=== PATIENT | female | born 1965 | race Caucasian/White ===

== ENCOUNTER 2018-03-12 11:25 | Outpatient (CLI) | payer BC, SELFPAY ==
[2018-03-12 12:05] LABS: Absolute Basophil Count 0.02 k/cumm (0.0-0.2); Absolute Eosinophil Count 0.08 k/cumm (0.0-0.7); Absolute Lymphocyte Count 1.48 k/cumm (1.2-3.4); Absolute Monocyte Count 0.45 k/cumm (0.11-0.7); Absolute Neutrophil Count 3.15 k/cumm (1.2-6.7); Basophils % 0.4; Eosinophils % 1.5; HCT 37.4 % (36.0-46.0); HGB 12.3 g/dL (12.0-15.5); Lymphocytes % 28.6; Mean Corp. HGB Concentration 32.9 g/dL (32.0-36.0); Mean Corpuscular Hemoglobin 29.2 pg (27.0-33.0); Mean Corpuscular Volume 88.8 fL (80-95); Mean Platelet Volume 9.7 fL (8.0-11.0); Monocytes % 8.7; Neutrophils % 60.8; Platelet Count 200 x1000/uL (130-400); RBC 4.21 m/cumm (4.00-5.20); RBC Distribution Width 12.9 % (11.7-14.6); White Blood Cell Count 5.18 k/cumm (4.4-10.8)
[2018-03-12 12:08] LABS: Bilirubin Negative (Negative); Blood Negative (Negative); Clarity Sl Cloudy; Glucose Negative (Negative); Ketones Negative (Negative); Leukocyte Esterase Negative (Negative); Nitrite Negative (Negative); Specific Gravity 1.025 (1.005-1.025); Urobilinogen 0.2 EU/dL (Up TO 0.2); pH 5.5 (5-8)
[2018-03-12 13:17] LABS: ALT 34 U/L (12-78); AST 20 U/L (15-37); Albumin 3.7 g/dL (3.4-5.0); Alkaline Phosphatase 102 U/L (46-116); BUN 24 mg/dL (7-18); Bilirubin, Total 0.3 mg/dL (0.2-1.0); Calcium 8.9 mg/dL (8.5-10.1); Chloride 106 mmol/L (98-107); Cholesterol 193 mg/dL (50-200); Glucose 82 mg/dL (70-100); HDL Cholesterol 67 mg/dL (40-60); LDL CHOLESTEROL 116 mg/dL (<100); Potassium 3.9 mmol/L (3.5-5.1); Sodium 144 mmol/L (136-145); TSH (W/Ref FT4) 0.85 uIU/mL (0.358-3.74); Total Protein 6.5 g/dL (6.4-8.2); Triglyceride 57 mg/dL (30-150)
== END 2018-03-12 11:45 ==
PROVIDERS: PCP Family Medicine; Visit Provider Family Medicine
DX: G25.81 Restless legs syndrome (principal)
CPT/HCPCS: 36415; 80053; 80061; 83721; 81003; 83735; 84443; 85025

== ENCOUNTER 2018-03-14 01:04 | Outpatient (CLI) | payer BC, SELFPAY ==
--- NOTE | 2018-03-14 12:05 | DI.MAMMO_ITS ---
SYMPTOMS/DIAGNOSIS: SCREENING, Z12.31, GENERAL ADULT MEDICAL EXAM, Z00.00 MAMMOGRAM: Mammograms were interpreted according to the usual protocol including computer analysis with CAD system, tomosynthesis and C view imaging. The breast tissue is heterogeneously radiodense, which lowers the sensitivity of the study. There is no dominant mass. There are no suspicious calcifications and there has been no significant interval change when compared with prior images. SUMMARY: No evidence of malignancy, category 1. Yearly screening mammography is recommended. Breast density category C. MQSA ASSESSMENT OF FINDINGS: Negative. Category 1. Patient will receive a letter notifying them of these results. Bi-RADS category C. The breasts are heterogeneously dense, which may obscure small masses.
== END 2018-03-14 01:24 ==
PROVIDERS: PCP Family Medicine; Visit Provider Family Medicine
DX: Z00.00 Encounter for general adult medical examination without abnormal findings (principal); Z12.31 Encounter for screening mammogram for malignant neoplasm of breast
CPT/HCPCS: 77063; 77067

== ENCOUNTER 2018-11-19 14:50 | Outpatient (CLI) | payer BC, SELFPAY ==
--- NOTE | 2018-11-19 14:40 | DI.RAD_ITS ---
SYMPTOMS/DIAGNOSIS: LEFT 3RD TO 4TH METATARSAL PAIN//TENDERNESS, FOOT PAIN, M79.673, ? FX LEFT FOOT: Three views were obtained. No bony or soft tissue abnormality seen.
== END 2018-11-19 15:10 ==
PROVIDERS: PCP Family Medicine; Visit Provider Family Medicine
DX: M79.672 Pain in left foot (principal)
CPT/HCPCS: 73630

== ENCOUNTER 2019-06-20 16:41 | Outpatient (CLI) | payer BC, SELFPAY ==
--- NOTE | 2019-06-20 17:05 | DI.RAD_ITS ---
EXAM: XR LUMBAR SPINE COMPLETE CLINICAL HISTORY: pain M54.9 DORSALGIA TECHNIQUE: Five views were obtained. COMPARISON: LUMBAR SPINE COMPLETE from 01/31/2013 FINDINGS: There is a moderate left convex lumbar scoliosis. There are vascular clips in the right upper quad rant consistent with prior cholecystectomy. There are degenerative changes of the SI joints. There is disc space narrowing throughout the lumbar spine, most marked at L2-3 where there are prominent hy pertrophic endplate changes and endplate sclerosis of the adjoining vertebral bodies. Moderate facet hypertrophic degenerative changes noted as well. No evidence of spondylolysis or spondylolisthesis. IMPRESSION: Degenerative changes of the lumbar spine as described above.
--- NOTE | 2019-06-20 17:15 | DI.RAD_ITS ---
EXAM: XR CHEST 2V PA LATERAL CLINICAL HISTORY: abnormal lung sounds. TECHNIQUE: COMPARISON: CHEST 2 VIEWS PA,LAT from 12/11/2012 FINDINGS: Heart is not enlarged. Lungs are hyperinflated but generally clear with slight pulmonary interstitia l prominence. The findings are suggestive of COPD. No pleural effusion seen. IMPRESSION: Presumed pulmonary emphysematous changes. No focal consolidation.
[2019-06-20 17:27] LABS: Absolute Basophil Count 0.02 k/cumm (0.0-0.2); Absolute Eosinophil Count 0.07 k/cumm (0.0-0.7); Absolute Lymphocyte Count 1.86 k/cumm (1.2-3.4); Absolute Monocyte Count 0.41 k/cumm (0.11-0.7); Absolute Neutrophil Count 2.56 k/cumm (1.2-6.7); Basophils % 0.4; Eosinophils % 1.4; HGB 13.6 g/dL (12.0-15.5); Lymphocytes % 37.8; Mean Corpuscular Hemoglobin 29.4 pg (27.0-33.0); Mean Corpuscular Volume 86.4 fL (80-95); Mean Platelet Volume 9.8 fL (8.0-11.0); Monocytes % 8.3; Neutrophils % 52.1; Platelet Count 246 x1000/uL (130-400); RBC 4.63 m/cumm (4.00-5.20); RBC Distribution Width 12.8 % (11.7-14.6); White Blood Cell Count 4.92 k/cumm (4.4-10.8)
[2019-06-20 18:38] LABS: ESR 6 mm/hr (0-30)
[2019-06-20 18:46] LABS: ALT 35 U/L (14-59); AST 28 U/L (15-37); Albumin 4.1 g/dL (3.4-5.0); Alkaline Phosphatase 113 U/L (46-116); Anion Gap 8.4 mmol/L (3-11); BUN 16 mg/dL (7-18); Bilirubin, Total 0.3 mg/dL (0.2-1.0); CO2 32.6 mmol/L (21.0-32.0); CREATININE 0.54 mg/dL (0.55-1.02); Calcium 9.4 mg/dL (8.5-10.1); Chloride 101 mmol/L (98-107); Glucose 111 mg/dL (74-106); Potassium 3.7 mmol/L (3.5-5.1); Sodium 142 mmol/L (136-145); TSH 0.49 uIU/mL (0.36-3.74); Total Protein 7.3 g/dL (6.4-8.2)
== END 2019-06-20 17:01 ==
PROVIDERS: PCP Nurse Practitioner; Visit Provider Internal Medicine
DX: Z00.00 Encounter for general adult medical examination without abnormal findings (principal); M54.5 Low back pain; R50.9 Fever, unspecified; R09.89 Other specified symptoms and signs involving the circulatory and respiratory systems; J44.9 Chronic obstructive pulmonary disease, unspecified; M41.56 Other secondary scoliosis, lumbar region; M47.816 Spondylosis without myelopathy or radiculopathy, lumbar region; M53.3 Sacrococcygeal disorders, not elsewhere classified
CPT/HCPCS: 36415; 80053; 85652; 71046; 72110; 84443; 85025

== ENCOUNTER 2019-11-29 02:05 | Outpatient (CLI) | payer BC, SELFPAY ==
--- NOTE | 2019-11-29 13:04 | DI.MAMMO_ITS ---
EXAM: MG MAMMO SCREENING CLINICAL HISTORY: screening,Z12.39 TECHNIQUE: Bilateral full field digital CC and MLO mammographic images were obtained with 3D tomosyn thesis and utilizing computer aided detection (CAD). COMPARISON: Available for comparison. FINDINGS: Masses/Architectural Distortion: None seen. Microcalcifications: No suspicious pleomorphic-type are seen. Skin Thickening/Nipple Retraction: None. IMPRESSION: 1. No significant interval change with no specific features of malignancy noted. 2. Unless there is more urgent need, screening mammography is recommended, as per [employer] guidelines. BI-RADS Category 1 - Negative Breast Density - Category B - Scattered areas of fibroglandular density A negative radiographic report should not delay biopsy if a dominant or clinically suspicious mass is present. Up to ten percent of cancers are not identified on mammography. A negative report may reinforce clinical impression. Adenosis and dense breasts may obscure an underlying neoplasm. False positive reports average 6 to 10%. Patient will receive a letter notifying them of these results.
== END 2019-11-29 02:25 ==
PROVIDERS: PCP Nurse Practitioner; Visit Provider Nurse Practitioner
DX: Z12.31 Encounter for screening mammogram for malignant neoplasm of breast (principal)
CPT/HCPCS: 77063; 77067

== ENCOUNTER 2021-06-04 03:22 | Outpatient (CLI) | payer BC, SELFPAY ==
[2021-06-04 08:16] LABS: Hemoglobin A1C 5.4 % (<5.7)
[2021-06-04 08:59] LABS: Anion Gap 7.9 mmol/L (3-11); BUN 20 mg/dL (7-18); CO2 30.1 mmol/L (21.0-32.0); CREATININE 0.7 mg/dL (0.55-1.02); Calcium 9.5 mg/dL (8.5-10.1); Calculated LDL 158 mg/dL (<100); Chloride 103 mmol/L (98-107); Cholesterol 236 mg/dL (<200); Glucose 97 mg/dL (74-106); HDL Cholesterol 70 mg/dL (40-60); Potassium 3.9 mmol/L (3.5-5.1); Sodium 141 mmol/L (136-145); Triglyceride 41 mg/dL (<150)
== END 2021-06-04 03:23 | disposition home or self-care (01) ==
LOC: LBO 03:23
PROVIDERS: PCP Nurse Practitioner; Visit Provider Nurse Practitioner
DX: G47.62 Sleep related leg cramps (principal); Z13.1 Encounter for screening for diabetes mellitus; Z13.6 Encounter for screening for cardiovascular disorders
CPT/HCPCS: 36415; 80048; 80061; 83036

== ENCOUNTER 2021-06-08 00:49 | Outpatient (CLI) | payer BC, SELFPAY ==
--- NOTE | 2021-06-08 07:30 | DI.MRI_ITS ---
Exam(s) MR LUMBAR SPINE WO/W EXAM: MR LUMBAR SPINE WO/W CLINICAL HISTORY: SYNOVIAL CYST F/U.HAD BACK SURGERY 2015.radiculopathy. TECHNIQUE: Multiplanar multisequence MRI of the Lumbar Spine was performed. CONTRAST MATERIAL: IV Contrast: 12 mL of Dotarem contrast administered. COMPARISON: MR MRI - LUMBAR SPINE WO CONTRAST from 02/26/2015 MR MRI - LUMBAR SPINE WO CONTRAST from 02/26/2015 FINDINGS: Bones: The last intervertebral disc space is designated the L5/S1 level for the numbering purpose of this examination. The vertebral body heights are well maintained. There is an S-type thoracolumbar s coliosis. Degenerative endplate signal changes are present particularly at the L2-L3 level. Cord: The conus tip ends at the L1-L2. This is unchanged. Level. It is of normal size and signal i ntensity. T12-L1: No disc herniations or bulges are present. No central spinal canal or neural foraminal stenos is. L1-2: No disc herniations or bulges are present. No central spinal canal or neural foraminal stenosis . L2-3: Mild diffuse disc bulge. No significant central spinal canal stenosis. Degenerative changes o f the facets are seen. There appears to be a 7 mm right synovial cyst. It extends into the neural f oramen causing right neural foraminal stenosis. L3-4: No disc herniations or bulges are present. No central spinal canal or neural foraminal stenosis . L4-5: Is a mild diffuse disc bulge. No significant central spinal canal stenosis is present. Facet arthropathy is present, left greater than right. Mild bilateral neural foraminal stenosis. L5-S1: There is a mild diffuse disc bulge. No significant central spinal canal stenosis is present. There are degenerative changes of the facets. No right neural foraminal stenosis. Inwr-ju-dwakquxy left neural foraminal stenosis is present. Soft tissues: The visualized SI joints and sacrum are well maintained. The paraspinal soft tissues ar e unremarkable. There again seen perineural root sleeve cysts in the sacrum. There is no evidence of suspicious enhancement. IMPRESSION: 1. Multilevel degenerative changes in the lumbar spine resulting in neural foraminal stenosis. Pleas e see the above discussion for complete details. 2. Findings suspicious for a 7 mm right synovial cyst at the L2-3 level. There does appear to be rig ht neural foraminal stenosis. DATA REPOSITORY:
[2021-06-08] MEDS: Normal Saline Flush 10 ML SYR IVP (12:30)
[2021-06-08] MEDS: Gadoterate meglumine 20 ML VIAL 12 ML IVP (12:31)
== END 2021-06-08 01:09 ==
PROVIDERS: PCP Nurse Practitioner; Visit Provider Nurse Practitioner
DX: M54.12 Radiculopathy, cervical region (principal); M54.51 Vertebrogenic low back pain; M48.062 Spinal stenosis, lumbar region with neurogenic claudication
CPT/HCPCS: 72158

== ENCOUNTER 2021-06-23 01:27 | Outpatient (CLI) | payer BC, SELFPAY ==
--- NOTE | 2021-06-23 12:48 | DI.MAMMO_ITS ---
Exam(s) MAMMO SCREENING EXAM: MAMMO SCREENING CLINICAL HISTORY: screening,Z12.39 TECHNIQUE: Mammograms were interpreted according to the usual protocol including computer analysis w [email or web address] CAD system, tomosynthesis and C-view imaging. COMPARISON: FINDINGS: The breasts are heterogeneously dense. No dominant mass or clumped microcalcification is identified in either breast. The current examination is compared with previous examinations including November 2019 and there is question of increased prominence of a focal area of asymmetric density projected in the anterior portion of the right breast about 5 cm superior to the nipple on the MLO view. Additional mammographic views of this area are requested to include MLO spot compression view. No other significant change seen in either breast. IMPRESSION: Additional mammographic views of the right breast requested as described above. Breast ultrasound ma y be indicated as well depending on the results of the additional mammographic views. BI-RADS Category 0 - Assessment Incomplete: Need additional imaging evaluation Breast Density - Category C - Heterogeneously dense
== END 2021-06-23 01:47 ==
PROVIDERS: PCP Nurse Practitioner; Visit Provider Nurse Practitioner
DX: Z12.31 Encounter for screening mammogram for malignant neoplasm of breast (principal); R92.8 Other abnormal and inconclusive findings on diagnostic imaging of breast
CPT/HCPCS: 77063; 77067

== ENCOUNTER 2021-07-07 01:23 | Outpatient (CLI) | payer BC, SELFPAY ==
--- NOTE | 2021-07-07 | DI.US_ITS ---
Exam(s) MG MAMMO SCREEN CALL BACK UNI US BREAST RT COMPLETE EXAM: US BREAST RT COMPLETE CLINICAL HISTORY: Nodule rt breast TECHNIQUE: Ultrasound performed using standard protocol. COMPARISON: US RIGHT BREAST ULTRASOUND from 02/16/2017 FINDINGS: Additional mammographic views of the right breast and right breast ultrasound are interpreted in conj unction. Recent mammogram showed a a questionable area of new asymmetric density in the right breast in the 12 o'clock position seen on MLO view only. On today's examination, MLO spot compression view fails to show a discrete mass. Breast ultrasound w as performed of the entire right breast. There is 6 millimeter in diameter intramammary lymph node s een in the 9 o'clock position approximately 5 cm from the nipple. No mass or cyst identified elsewhe re in the right breast. IMPRESSION: No specific evidence of malignancy at this time. Follow-up unilateral right breast mammogram recomme nded in 6 months. BI-RADS Cat 3 - 6 month - Probably Benign Finding: Recommend follow-up imaging in 6 months Breast Density - Category C - Heterogeneously dense DATA REPOSITORY:
== END 2021-07-07 01:43 ==
PROVIDERS: PCP Nurse Practitioner; Visit Provider Nurse Practitioner
DX: R92.8 Other abnormal and inconclusive findings on diagnostic imaging of breast (principal)
CPT/HCPCS: 76642; 77063; 77067

== ENCOUNTER 2021-08-02 19:07 | Outpatient (CLI) | payer BC, SELFPAY ==
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
== END 2021-08-02 19:27 ==
PROVIDERS: PCP Nurse Practitioner; Visit Provider Nurse Practitioner Family
DX: S90.31XA Contusion of right foot, initial encounter (principal); S92.515A Nondisplaced fracture of proximal phalanx of left lesser toe(s), initial encounter for closed fracture; W22.8XXA Striking against or struck by other objects, initial encounter
CPT/HCPCS: 73630

== ENCOUNTER → 2022-01-06 00:18 | Outpatient (CLI) | payer BC, SELFPAY ==
--- OUTSIDE RECORDS SUMMARY | 2022-01-06 00:19 | XMS_ITS | Encounter Summary ---
:1965 [place] [address] Care Team Providers Name Role Phone None Primary Care Provider Unavailable Encounter Details Date Type Department Care Team Description 04/19/2013 Hospital Encounter Laboratory Maki Dewey MD [facility] [place] [address] GASTROENTEROLOGY [phone] DEPT [place], [place] [address] (Wo rk) Social History Tobacco Use Types Packs/Day Years Used Date Former Smoker Sex Assigned at Date Recorded Not on file documented as of this encounter Medications at Time of Discharge Medication Sig Dispensed Refills Start Date End Date docusate sodium (COLACE) Take 100 mg by mouth 0 100 mg capsule daily. polyethylene glycol Take 17 g by mouth 0 (MIRALAX) 17 gram/dose as needed. powder estradiol (ESTRACE) 2 mg Take 0.5 mg by mouth 0 03/17/2014 tablet daily. gabapentin (NEURONTIN) Take 100 mg by mouth 0 04/30/2014 100 mg capsule nightly. 1-2 tablets nightly documented as of this encounter Plan of Treatment Not on filedocumented as of this encounter Procedures Procedure Name Priority Date/Time Associated Diagnosis Comme nts SURGICAL PATHOLOGY Routine 04/19/2013 10:22 AM Jody marroquin for this REPORT EDT procedure are i n the results section. documented in this encounter Results Surgical Pathology Report (04/19/2013 10:22 AM EDT) Component Value Ref Test Analysis Performed At [facility] Range Method Time Signature Surgical CERNER Pathology ? [facility] Report ? Provider: ?? MAKI DEWEY ?Pt. Name: ?? RIN CORBIN ? Acc #: [id number] ?Pt. MRN: ?[id number] ? Col Date: ?? 3 ? /Sex: ?1965,(48 years),Female ? Rec Date: ?? 04/22/2013 ? LOC: ?[facility] ? SURGICAL PATHOLOGY ? ---Pathologic Diagnosis--- ? A - Outside slides labeled [id number], collection date 12/25/2012. ?1. Rectum, polypectomy: ? Hyperplastic polyp. ?2. Gastric antrum, biopsy: ? Antrum-type mucosa, negative for diagno stic abnormality. ?3. Distal esophagus, biopsy: ? Esophagea l squamous mucosa, negative for diagnostic abnormality. ? B - Outside slides labeled [id number], collection date 02/05/2013. ? Small bowel, resection: ? Suggestive of C rohn's disease upon exclusion of specific etiologies ? (see Note). ? Note: Presence of tra nsmural lymphoid infiltrates, fissuring ulcer (slide ? 10) and focal chronic active mucosal inflammation with pyloric metaplasia ? support the diagnosis . ??No evidence of granuloma. ??The case was reviewed at ? the consensus confere nce by Drs. Morin and Rangel, who concur with the ? interpretation, ? CR-0 ? 04/22/13 ? [facility] ? 04/26/13 Verified by: ? LisovskDax dickerson MD ? Pathologist ? (Electronic Si gnature) ? The attending pathologist whose signature appears o n this report has ? reviewed all diagnostic slides and has edited the jihan ss and/or ? microscopic portion of the report in rendering the fi nal pathologic ? diagnosis. ? ---Microscopic Description--- ? Whole slide scan: 3, 11, 16 ? ---Gross Description--- ? [facility] ([facility]) pathology slide(s) are reviewed. ??Refer ? to Diagnosis and Specimen Submitted for specific case information. ? [facility] ? Provider: ?? MAKI DEWEY ?Pt. Name: ?? RIN CORBIN ? Acc #: ?[id number] ?Pt. MRN: ?[id number] ? Col Date: ?? 3 ? /Sex: ?1965,(48 years),Female ? Rec Date: ?? 04/22/2013 ? LOC: ?[facility] ? SURGICAL PATHOLOGY ? For the full text of the [facility] report(s) please refer to Non-DH ? Documentation Pathology in the electronic health [address] (eDH). ? ---Clinical Information--- ? Specimen Submitted: ? CONSULTATION CASE ? A - 3 slides labeled [id number], collection date 013. ? B - 32 slides labeled [id number], collection date 02/05. ? [id number] ? Report to: ? [facility] ? Surgical Pathology Department ? [facility], [address] ? [address] ? [place], [place] ??[address] ? Specimen (Source) Anatomical Collection Method Collection Time Re ceived Time Location / / Volume Laterality 04/19/2013 10:22 AM EDT Maki Dewey MD PATHOLOGY/CYTOLOGY ORDERABLE S Performing Organization Address City/State/[place] [address] [facility] documented in this encounter Visit Diagnoses Not on filedocumented in this encounter Care Teams Retail Solar Advisor Relationship Specialty Start Date End Date None PCP - General 04/15/13 05/07/13 None documented as of this encounter
--- OUTSIDE RECORDS SUMMARY | 2022-01-06 00:19 | XMS_ITS | Encounter Summary ---
:1965 Author Organization [facility] [place] [address] Care Team Providers Name Role Phone Lourdes Smith MD Primary Care Provider Encounter Details Date Type Department Care Team Description 06/20/2013 Surgery Gastroenterology at [facility] Frances Hanson, COLONOSCOPY, [facility] Sade [place]de [place] [address] [facility] [phone] GASTROENTEROLOGY DEPT. [place] [id number] Social History Tobacco Use Types Packs/Day Years Used Date Former Smoker Alcohol Use Standard Drinks/Week Comments No 0 (1 standard drink = 0.6 oz pure alcoho l) Sex Assigned at Date Recorded Not on file documented as of this encounter Last Filed Vital Signs Vital Sign Reading Time Taken Comments Blood Pressure 110/61 06/20/2013 5:29 PM EST Pulse 59 06/20/2013 5:29 PM EST Temperature - - Respiratory Rate 16 06/20/2013 5:29 PM EST Oxygen Saturation 100% 06/20/2013 5:29 PM EST Inhaled Oxygen Concentration - - Weight - - Height - - Body Mass Index - - documented in this encounter Discharge Instructions Discharge Shen Vallejo RN - 06/20/2013 5:29 PM EST You may have received medication before and/or during your procedure which effects judgement and reaction time. Do not drive, operate machinery, drink alcoholic beverages, or make important decisions for 24 hours. Be careful on stairs, as you may be unsteady on your feet. You may eat a regular diet as tolerated. Do not smoke if you are alone. IV site -- slight redness or tenderness is normal. You may use a warm compress. If tenderness and redness increases or foul drainage occurs please contact your M.D. Please call [phone] before 5 pm with problems, questions or concerns. After 5pm call [phone] and ask to speak with the event producer corrosion control fitter. Discharge instructions reviewed with patientwho expresses understanding. AttachmentsThe following attachments cannot be sent through Care Everywhere. COLONOSCOPY: WHAT TO EXPECT AT HOME (IRAQI)documented in this encounter Medications at Time of Discharge Medication Sig Dispensed Refills Start Date End Date docusate sodium (COLACE) Take 100 mg by mouth 0 100 mg capsule daily. polyethylene glycol Take 17 g by mouth 0 (MIRALAX) 17 gram/dose as needed. powder rifaximin (XIFAXIN) 550 Take 1 tablet by 30 tablet 0 201210/03/2013 mg Tab tablet mouth 3 times daily. pantoprazole (PROTONIX) Take 1 tablet by 90 tablet 3 201203/17/2014 40 mg tablet mouth daily. estradiol (ESTRACE) 2 mg Take 0.5 mg by mouth 0 03/17/2014 tablet daily. gabapentin (NEURONTIN) Take 100 mg by mouth 0 04/30/2014 100 mg capsule nightly. 1-2 tablets nightly documented as of this encounter H&P Notes Frances Hanson MD - 06/20/2013 4:41 PM EST Gastroenterology and Hepatology Pre-Procedure History and Physical Exam Procedure: Colonoscopy Indication: 48F with history of Small bowel enteritis, s/p segmental resection. History of iron def anemia. Colonoscopy to assess disease and biopsies. There is no problem list on file for this patient. EXAM: HEENT: Airway examined, oropharynx clear LUNGS: Clear to auscultation HEART: Regular rate and rhythm, normal S1, S2 ABDOMEN: Normal bowel sounds, soft, non tender, non distended, A/P Proceed with the planned endoscopic procedure. Risks and benefits of the procedure explained to the patient. Consent signed. documented in this encounter Miscellaneous Notes Miscellaneous - Provider, Scanning - 06/20/2013 11:11 PM EST OR Attestation - Frances Hanson MD - 06/20/2013 5:33 PM EST Attestation: Case Date: 06/20/2013 As the attending physician, I was personally present for the entire procedure. FRANCES HANSON MD 06/20/2013 Miscellaneous - Provider, Scanning - 06/20/2013 4:01 PM EST documented in this encounter Plan of Treatment Not on filedocumented as of this encounter Procedures Procedure Name Priority Date/Time Associated Comments Diagnosis SURGICAL PATHOLOGY Routine 06/20/2013 5:24 PM Res ults for this REPORT EST procedure are i n the results section. SPECIMEN TO PATHOLOGY Routine 06/20/2013 5:24 PM Results for this EST procedure are i n the results section. SPECIMEN TO PATHOLOGY Routine 06/20/2013 5:24 PM Results for this EST procedure are i n the results section. COLONOSCOPY, 06/20/2013 4:43 PM Anemia, iron DIAGNOSTIC EST deficiency COLONOSCOPY Routine 06/20/2013 4:35 PM Results f or this EST procedure are i n the results section. documented in this encounter Results Surgical Pathology Report (06/20/2013 5:24 PM EST) [facility] Method Time Signature Surgical CERNER Pathology ? [facility] Report ? Provider: ?? FRANCES HANSON ?Pt. Name: ?? RIN CORBIN Flaquito ? Acc #: ?[id number] ?Pt. MRN: ?[id number] ? Col Date: ?? 06/20/2013 ?/Sex: ?1965,(48 years),Female ? Rec Date: ?? 06/20/2013 ?LOC: ?4T ? SURGICAL PATHOLOGY ? ---Pathologic Diagnosis--- ? A - Rectum, polypectomy: ? Hyperplastic polyp. ? B - Terminal ileum, biopsy: ? Ileal mucosa, negative for diagnostic abnormali ty. ? CR-0, CR-PX ? 06/21/13 ? BJM ? 06/21/13 Verified by: ? Annel FERREIRA, Dax ? Pathologist ? (Electronic Si gnature) ? The attending pathologist whose signature appears o n this report has ? reviewed all diagnostic slides and has edited the jihan ss and/or ? microscopic portion of the report in rendering the fi nal pathologic ? diagnosis. ? ---Gross Description--- ? A - Labeled/Fixative: Rectal polyp, formalin. ? Quantity/Size: One, 0.5 x 0.3 x 0.3 cm. ? Tissue Description: Gaytan-red tissues. ? Sections/Processing: Inked, bisected (T1) ? B - Labeled/Fixative: TI BX, formalin. ? Quantity/Size: Three, 0.3-0.5 cm. ? Tissue Description: Gaytan tissues. ? Sections/Processing: (T1) ??cjl ? ---Clinical Information--- ? Specimen Submitted: ? A - Rectal polyp ? B - TI bx ? Clinical History: ? History of small bowel enteritis, normal TI, rectal p olyp ? Clinical Diagnosis: ? Not provided Specimen (Source) Anatomical Collection Method Collection Time Re ceived Time Location / / Volume Laterality 06/20/2013 5:24 PM EST Frances Hanson MD PATHOLOGY/CYTOLOGY ORDERABLE S Performing Organization Address [facility]/[place] [address] CERNER MILLENNIUM Specimen to Pathology (surgical or derm) (06/20/2013 5:24 PM EST) Specimen Anatomical Collection Method Collection Time Receive d Time (Source) Location / / Volume Laterality AP Specimen 06/20/2013 5:24 PM 4 5:24 EST PM EST Narrative CERNER MILLENNIUM - 06/20/2013 5:[address] Specimen requisition ordered. ??Separate Pathology report to follow Frances Hanson MD PATHOLOGY/CYTOLOGY ORDERABLE S Performing Organization Address City/[facility]/ZIP Code Phon e Number [address] CERNER MILLENNIUM Specimen to Pathology (surgical or derm) (06/20/2013 5:24 PM EST) Specimen Anatomical Collection Method Collection Time Receive d Time (Source) Location / / Volume Laterality AP Specimen 06/20/2013 5:24 PM 4 5:24 EST PM EST Narrative CERNER MILLENNIUM - 06/20/2013 5:[address] Specimen requisition ordered. ??Separate Pathology report to follow Frances Hanson MD PATHOLOGY/CYTOLOGY ORDERABLE S Performing Organization Address City/[facility]/[place] [address] CERNER MILLENNIUM COLONOSCOPY (06/20/2013 4:35 PM EST) Component Value Ref Test Analysis Performed At [facility] Range Method Time Signature COLONOSCOPY [facility] Endoscopy Patient Name: Rin Corbin ? Procedure Date: 06/20/2013 4:35 PM ? Date of : 1965 ? Age: 48 ? Order #: [id number] ? Procedure: ? Colonoscopy Indications: ? Iron deficiency anemia Providers: ? Enrique Mulligan , ? RN, Lourdes Rodriguez Six Horse Hitch Driver Maki ? MD Foster Referring : ?Lourdes Smith MD Medicines: ? Midazolam 3.5 mg IV, Fentanyl 175 ? micrograms IV Complications: ? No immediate complications. Procedure: ? Pre-Anesthesia Assessment: ? - Prior to the procedure, a H istory ? and Physical was performed, a nd ? patient medications, allergie s and ? sensitivities were reviewed. The ? patient's tolerance of previo us ? anesthesia was reviewed. ? - The risks and benefits of t he ? procedure and the sedation op tions ? and risks were discussed with the ? patient. All questions were a nswered ? and informed consent was obta ined. ? - Patient identification and proposed ? procedure were verified prior to the ? procedure by the physician barbara rice the ? nurse. The procedure was veri fied in ? the pre-procedure area in the ? procedure room. ? - Pre-procedure physical exam ination ? revealed no contraindications to ? sedation. ? - ASA Grade Assessment: II - A ? patient with mild systemic di sease. ? - After reviewing the risks a nd ? benefits, the patient was rani med in ? satisfactory condition to und ergo the ? procedure. ? - The anesthesia plan was to use ? moderate sedation/analgesia ? (conscious sedation). ? The procedure, indications, b enefits, ? risks and alternatives were e xplained ? to the patient. Specifically ? discussed were potential ? complications including, but not ? limited to, bleeding, perfora tion, ? infection, missing a cancer, and ? adverse medication reactions. The ? patient was placed in the lef t ? lateral decubitus position, a nd a ? digital rectal exam was perfo rmed. ? The Colonoscope was inserted in the ? anus and under direct visuali zation, ? advanced to the terminal ileu m. ? Careful inspection was made a s the ? colonoscope was withdrawn. Th e ? patient tolerated the procedu re well. ? The quality of the bowel prep aration ? was good. ? Findings: ? Perianal examination was normal. ? A 8mm sessile polyp was seen in the rectum. Polyp was ? removed with cold snare polypectomy. Polyp retreived ? and sent to pathology. ? The rectum, sigmoid colon, descending colon, ? transverse colon, ascending colon and cecum appeared ? normal. ? The terminal ileum appeared normal in appearance. The ? anastomotic site was noted visualized. Biopsied. ? No additional abnormalities were found on ? retroflexion. ? Impression: ?- 8mm rectum polyp. Removed and se nt ? to pathology. ? - Normal colon ? - Normal terminal ileum. Biop sed. Recommendation: ?Follow up in the clinic to review ? biopsy results. ? If there is microscopic evide nce of ? inflammation, consider treatm ent. ? Follow up pending pathology ? Frances Hanson Frances Hanson, 06/20/2013 5:33 PM This report has been signed electronically. Number of Addenda: 0 Note Initiated On: 06/20/2013 4:35 PM Specimen (Source) Anatomical Collection Method Collection Time Re ceived Time Location / / Volume Laterality 06/20/2013 4:35 PM EST Lourdes Smith MD GENERAL SURGICAL ORDERABLES Performing Organization Address City/State/ZIP Code Phon e Number [employer] documented in this encounter Visit Diagnoses Diagnosis Anemia, iron deficiency Iron deficiency anemia, unspecified documented in this encounter Administered Medications Inactive Administered Medications - up to 3 most recent administrations Medication Order MAR Action Action Date Dose Rate Site fentaNYL 50mcg/mL injection Given 06/20/2013 4:58 PM EST 25 mcg Right Arm ONCE PRN, Starting on Rachel 06/20/13 at 1647, Until Rachel 06/20/13 at 1757, Pain, Intra-Operative (Intra-Procedure), Routine Given 06/20/2013 4:53 PM EST 50 mcg Right Arm Given 06/20/2013 4:49 PM EST 50 mcg Right Arm midazolam (VERSED) injection Given 06/20/2013 4:58 PM EST 0.5 mg Right Arm ONCE PRN, Starting on Rachel 06/20/13 at 1647, Until Rachel 06/20/13 at 1757, Sleep, Intra-Operative (Intra-Procedure), Routine Given 06/20/2013 4:53 PM EST 1 mg Right Arm Given 06/20/2013 4:49 PM EST 1 mg Right Arm sodium chloride 0.9% infusion New Bag 06/20/2013 4:00 PM EST 50 mL/hr 50 mL/hr 50 mL/hr, Intravenous, CONTINUOUS, Starting on Rachel 06/20/13 at 1600, Until Rachel 06/20/13 at 1757, Endoscopy (Day of Procedure) documented in this encounter Active and Recently Administered Medications Times are shown in EST. Continuous Medication Order 06/18/2013 06/19/2013 06/20/2013 sodium chloride 0.9% infusion (CANCELED) 1600 (New Bag - Provider: Astrid Espinoza RN) 50 mL/hr, at 50 mL/hr, Intravenous, CONT INUOUS, Starting Rachel 06/20/13 at 1600, Until Rachel 06/20/13 at 1757, Endo (Day of Procedure) PRN Medication Order 06/18/2013 06/19/2013 06/20/2013 fentaNYL 50mcg/mL injection (CANCELED) 1647 (Given - Provider: Enrique Frank RN)1649 (Given - Provider: Enrique Frank RN)1653 (Given - Provider: Enrique Frank RN)1658 (Given - Provider: Enrique Frank RN) ONCE PRN, Starting Rachel 1/2/14 at 1647, U ntil Rachel 1/2/14 at 1757, Pain, Intra- Operative (Intra-Procedure), Routine midazolam (VERSED) injection (CANCELED) 1647 (Given - Provider: Enrique Frank RN)1649 (Given - Provider: Enrique Frank RN)165 (Given - Provider: Enrique Frank RN)1658 (Given - Provider: Enrique Frank RN) ONCE PRN, Starting Rachel 1/14 at 1647, U ntil Rachel 1/2/14 at 1757, Sleep, Intra- Operative (Intra-Procedure), Routine documented in this encounter Care Teams Strategy Intern Relationship Specialty Start Date End Date Lourdes Smith MD PCP - General 05/08/13 [address] [place] [address] documented as of this encounter
--- OUTSIDE RECORDS SUMMARY | 2022-01-06 00:19 | XMS_ITS | Encounter Summary ---
:1965 Author Organization [facility] [place] [place] [address] Care Team Providers Name Role Phone Lourdes Smith MD Primary Care Provider Reason for Visit Reason Onset Date Comments Results 10/29/2013 Requesting results o f imaging done yesterday Encounter Details Date Type Department Care Team Description 10/29/2013 Telephone Gastroenterology at [facility] Missy Juan Results (Requesting [facility] D eula [place] [address] done yesterday) [phone] Social History Tobacco Use Types Packs/Day Years Used Date Former Smoker 1 20 Quit: 02/06/20 13 Alcohol Use Standard Drinks/Week Comments No 0 (1 standard drink = 0.6 oz pure alcoho l) Sex Assigned at Date Recorded Not on file documented as of this encounter Miscellaneous Notes Telephone Encounter - Missy Juan RN - 10/29/2013 10:14 AM EDT TC from pt - requesting results of imaging done yesterday. (XR Fluoro Small Bowel) Request for results communicated to Dr Hutchison via In Basket. documented in this encounter Plan of Treatment Not on filedocumented as of this encounter Visit Diagnoses Not on filedocumented in this encounter Care Teams [employer] Law Clerk Relationship Specialty Start Date End Date Lourdes Smith MD PCP - General 05/08/13 [address] [place] [address] documented as of this encounter
--- OUTSIDE RECORDS SUMMARY | 2022-01-06 00:19 | XMS_ITS | Encounter Summary ---
:1965 Author Organization [facility] [place] [address] Care Team Providers Name Role Phone Lourdes Smith MD Primary Care Provider Reason for Visit Reason Comments Back Pain Left Leg Pain Encounter Details Date Type Department Care Team Description 03/17/2014 Procedure visit Pain Management at [facility] Disp lacement of [facility] lumbosacral [facility] MEDICAL intervert ebral disc [facility]ENTER (Primary Dx) [place], [place] PAIN CL[facility]IC [id number] [place] [address] [facility] Social History Tobacco Use Types Packs/Day Years Used Date Former Smoker 1 20 Quit: 02/06/20 13 Alcohol Use Standard Drinks/Week Comments No 0 (1 standard drink = 0.6 oz pure alcoho l) Sex Assigned at Date Recorded Not on file documented as of this encounter Last Filed Vital Signs Vital Sign Reading Time Taken Comments Blood Pressure 167/82 03/17/2014 4:48 PM EDT Pulse 88 03/17/2014 4:48 PM EDT Temperature - - Respiratory Rate 18 03/17/2014 4:48 PM EDT Oxygen Saturation 99% 03/17/2014 4:48 PM EDT Inhaled Oxygen Concentration - - Weight 74.4 kg (164 lb) 03/17/2014 4:22 PM EDT Height 165.1 cm (5' 5) 03/17/2014 4:22 PM EDT Body Mass Index 27.29 03/17/2014 4:22 PM EDT documented in this encounter Patient Instructions Patient InstructionsViolet Phillips RN - 03/17/2014 4:26 PM EDT Pain Management Center Discharge Instructions: You were seen by Dr. Mark Valentin DO and Efrain Jovel DO who performed left transforaminal injection. It is normal that the injection site will be sore for up to 48 hours. You may also experience mild stiffness in the joint near the injection site. [x] You may resume your normal activities: tomorrow. You may shower today. DO NOT tub bathe, use whirlpools, hot tubs or pool therapy for 2 days. Remove Band-Aid(s) later today/tomorrow. Do not drive until tomorrow. Use caution walking/climbing stairs as you may be unsteady on your feet. You may use your usual medications, including pain medications, as directed, unless otherwise instructed. You may use an ice pack as needed for the first 24 hours, on for 20 minutes then off for 20 minutes.Do not apply heat today. Attempt to empty your bladder 4-6 hours after your procedure. You received the following medications: Lidocaine, Omnipaque (contrast dye) and Dexamethasone SodiumPhosphate 10 mg. During regular business hours, please phone the Pain Management Center at for appointments or with any questions or if the following or other troubling symptoms develop: 1) Prolonged dizziness or weakness (more than 1 day). 2) Localized swelling, redness or drainage at the injection site(s). 3) Temperature of 101 degrees that lasts for more than 4 hours. After 5 PM or on weekends, call and ask for Pain Clinic provider on-call. If you are unable to reach the Pain Management Center and have a complication, please call your Primary Care Provider or proceed to your local emergency department. Violet Phillips RN Special instructions documented in this encounter Progress Notes Violet Phillips RN - 03/17/2014 4:23 PM EDT Pre-Procedure Screening Questions: 1. Status: No 2. Patient states they have a hydraulic lift driver to transport after procedure? Yes 3. Patient taking antibiotics at present? No 4. NPO per Pain Management Center protocol? No 5. Patient diabetic: No 6. Patient routinely taking anticoagulants ? No Anticoagulant: Date Stopped: Current INR: Patient Vital Signs documented in Doc Flowsheets associated with this encounter. Patient Discharge Instructions were reviewed with patient and copy provided to patient. documented in this encounter Procedure Notes Efrain Jovel, DO - 03/17/2014 5:45 PM EDTAssociated Order(s): TRANSFORAMINAL INJECTION Procedure(s): TRANSFORAMINAL INJECTION Pre-Procedure Diagnose(s): Displacement of lumbosacral intervertebral disc PROCEDURE NOTE Transforaminal Epidural Steroid Injection with Fluoroscopic Guidance at left L5-S1 Chief Complaint: left leg pain, left L5 radiculopathy Rin Lerma was seen by myself today in Pain Management Center and recommended for Lumbar Transforaminal Epidural Steroid Injection at the Left L5- S1 level. COMMENTS: Referring provider: Dr. Smith Allergies: Allergies Allergen Reactions ??? Sulfa (Sulfonamide Antibiotics) CIS - Urticaria ??? Nickel Rash Pre-procedure VAS: 8/10 to the left leg. Follow up plan: She will call our office in 2-3 weeks to report results of injection. If some improvement, may consider interlaminar injection versus repeat transforaminal. If no improvement, may consider surgical referral. Rin Lerma was greeted by the nurse who verified patients name and . Patient was then taken to the fluoroscopy suite. Ms. Lerma was interviewed and the medical record reviewed. There were no medical, pharmacologic, radiographic or other structural contraindications to attempting fluoroscopically guided transforaminal lumbar epidural steroid injection. The risks, benefits, and potential side effects were reviewed withthe patient. Risk include, but not limited to, post dural puncture, headache, infection, nerve injury, allergic reaction, possible increase in symptoms over the ensuing 24 to 48 hours, and paralysis. The patient appeared to understand, questions were answered and the patient agreed to proceed. Once I obtained informed verbal consent, the printed consent form was signed by the patient and myself. Standard time-out procedure was performed. TECHNIQUE: After informed written consent was obtained the patient was placed in the prone position. The lumbar spine spine was prepped with chloraprep and draped. Sterile technique was observed during the entire procedure ( cap, gloves, and mask were worn). Vitals signs were monitored throughout the procedure. The left side was marked with a radioopaque marker. The skin and subcutaneous structures were anesthetized with lidocaine 1% to a total volume of 3 ML at each level. Under fluoroscopic guidance, in ipsilateral oblique view, co-axial approach, 22 gauge 6 inch spinal needle was advanced to the base of the L-5. pedicle(s). The needle was advanced to the superio-posterior aspect of the neural foramen under lateral view. Oblique and AP views were rechecked. Under AP view Omnipaque 240 1 cc's was injected while visualized with fluoroscopy. There was no evidence of intravascular uptake, the epidural space was delineated. 10 mg Dexamethasone was injected after negative aspiration, at each level, followed by bupivacaine 0.5% 0.25 mL at each level. Outcome: The patient tolerated the procedure well and had stable vital signs. The patient noted after getting up after the procedure that their left leg pain was at a 0 out of 10 level with some persistent paresthesia.. Follow up plans and appointments were discussed with Ms. Lerma. The patient was observed in the painclinic and then discharged after having met discharge criteria to the care of a hydraulic lift driver. The patient received written instructions as documented in nursing records. Disposition: Ms. Lerma was discharged from the procedure suite without new neurological complaints. Follow-up: Follow up with Dr. Smith as scheduled or PRN. Procedure performed today by resident/fellow under direct supervision of Mark Valentin DO. EFRAIN JOVEL DO 03/17/2014 Fellow, Pain Management Center I was the attending physician supervising the resident in the above care and I was present with the resident for the entire procedure. MARK VALENTIN DO, MPH ABPMR-subspecialty board certification in Pain Medicine Attending Physician-Pain Management CC: Lourdes Smith MD [address] [place] [address] documented in this encounter Plan of Treatment Pending Results Name Type Priority Associated Diagnoses Date/Ti me XR Fluoro OR c-arm Imaging Routine 4 5:15 PM EDT storage only Scheduled Orders Name Type Priority Associated Diagnoses Order S chedule XR Fluoro OR c-arm Imaging Routine Once PRN (for Radiant storage only use) for 1 Occu rrences starting 2013 until 03/17/2014 documented as of this encounter Procedures Procedure Name Priority Date/Time Associated Diagnosis Comme nts TRANSFORAMINAL Routine 03/18/2014 10:18 Displacement of Result s for this INJECTION AM EDT lumbosacral procedure are i n intervertebral disc the resu lts section. documented in this encounter Results TRANSFORAMINAL INJECTION (03/18/2014 10:18 AM EDT) Narrative Mark Valentin V, DO - 03/18/2014 10:18 AM EDT Mark Valentin V, DO ? 03/18/2014 10:18 AM PROCEDURE NOTE Transforaminal Epidural Steroid Injectio n with Fluoroscopic Guidance at left L5-S1 Chief Complaint: left leg pain, left L5 radiculopathy ?? Rin Lerma was seen by myself today in Pain Management Center and recommended for Lumbar Transforamina l Epidural Steroid Injection at the Left L5-S1 level. COMMENTS: Referring provider: Dr. Smith Allergies: Allergies Allergen Reactions ? ? Sulfa (Sulfonamide Antibiotics) ?CIS - Urticaria ? ? Nickel Rash Pre-procedure VAS: 8/10 to the left leg. Follow up plan: She will call our office in 2-3 weeks to report results of injection. If some improvemen t, may consider interlaminar injection versus repeat tra nsforaminal. If no improvement, may consider surgical refer ral. Rin Lerma was greeted by the nurse who verified patients name and . ??Patient was then taken t o the fluoroscopy suite. Ms. Lerma was interviewed and the medica l record reviewed. ??There were no medical, pharmacologic, radiogra phic or other structural contraindications to attempting fluorosc opically guided transforaminal lumbar epidural steroid i njection. ??The risks, benefits, and potential side effects wer e reviewed with the patient. ??Risk include, but not limited to, post dural puncture, headache, infection, nerve injury, aller gic reaction, possible increase in symptoms over the ensuing 24 to 48 hours, and paralysis. ??The patient appeared to und erstand, ??questions were answered and the patient agreed to proce ed. ??Once I obtained informed verbal consent, the printed con sent form was signed by the patient and myself. Standard time-ou t procedure was performed. TECHNIQUE: ??After informed written con sent was obtained the patient was placed in the prone position . ??The lumbar spine spine was prepped with chloraprep and draped. ??Sterile technique was observed during the entire procedure ( c ap, gloves, and mask were worn). Vitals signs were monitored throu ghout the procedure. ??The left side was marked with a radioopaque marker. ??The skin and subcutaneous structures were anesthetize d with lidocaine 1% to a total volume of 3 ??ML at each level. Under fluoroscopic guidance, in ipsilate ral oblique view, co-axial approach, ??22 gauge 6 inch spi nal needle was advanced to the base of the ?? L-5. ?? pedicle(s). ? ?The needle was advanced to the superio-posterior aspect of the neur al foramen under lateral view. ??Oblique and AP views were rechec ked. ?? Under AP view Omnipaque 240 ??1 cc's was injected whil e visualized with fluoroscopy. ?? There was no evidence of intravascular uptake, the epidural space was delineated. ??10 mg D examethasone was injected after negative aspiration, at each level , followed by bupivacaine 0.5% 0.25 mL at each level. Outcome: The patient tolerated the proce dure well and had stable vital signs. The patient noted after get ting up after the procedure that their left leg pain was a t a ??0 out of 10 level with some persistent paresthesia.. ? Follow up plans and appointments were di scussed with Ms. Lerma. The patient was observed in the pain cli kortney and then discharged after having met discharge criteria ??to the care of a hydraulic lift driver. ?? The patient received written instruction s as documented in nursing records. ?? Disposition: ??Ms. Lerma was discharged from the procedure suite without new neurological complaints. Follow-up: Follow up with Dr. Smith as scheduled or PRN. Procedure performed today by resident/silvana kuhn under direct supervision of Mark Valentin DO. EFRAIN JOVEL DO 03/17/2014 Fellow, Pain Management Center I was the attending physician supervisin g the resident in the above care and I was present with the re sident for the entire procedure. MARK VALENTIN DO, MPH ABPMR-subspecialty board certification i n Pain Medicine Attending Physician-Pain Management CC: Loureds Smith MD [address] [place] [address] Procedure Note Efrain Jovel, - 03/17/2014 5: 45 PM EDT PROCEDURE NOTE Transforaminal Epidural Steroid Injectio n with Fluoroscopic Guidance at left L5-S1 Chief Complaint: left leg pain, left L5 radiculopathy Rin Lerma was seen by myself today in Pain Management Center and recommended for Lumbar Transforaminal Epidural Steroid Injection at the Left L5- S1 level. COMMENTS: Referring provider: Dr. Smith Allergies: Allergies Allergen Reactions ? ? Sulfa (Sulfonamide Antibiotics) CIS - Urticaria ? ? Nickel Rash Pre-procedure VAS: 8/10 to the left leg. Follow up plan: She will call our office in 2-3 weeks to report results of injection. If some improvement, may consider interlaminar injection versus repeat transforaminal. If no improvement, may consider surgical referral. Rin Lerma was greeted by the nurse who verified patients name and . Patient was then taken to the fluoroscopy suite. Ms. Lerma was interviewed and the medica l record reviewed. There were no medical, pharmacologic, radiographic or other structural contraindications to attempting fluoroscopically guided transforaminal lumbar epidural steroid injection. The risks, benefits, and potential side effects were reviewed with the patient. Risk include, but not limited to, post dural puncture, headache, infection, nerve injury, allergic reaction, possible increase in symptoms over the ensuing 24 to 48 hours, and paralysis. The patient appeared to understand, questions were answered and the patient agreed to proceed. Once I obtained informed verbal consent, the printed consent form was signed by the patient a nd myself. Standard time-out procedure was performed. TECHNIQUE: After informed written conse nt was obtained the patient was placed in the prone position. The lumbar spine spine was prepped with chloraprep and draped. Sterile technique was observed during the entire procedure ( cap, gloves, and mask were w orn). Vitals signs were monitored throughout the procedure. The left side was marked with a radioopaque marker. The skin and subcutaneous structures were anesthetized with lidocaine 1% to a total volume of 3 ML a t each level. Under fluoroscopic guidance, in ipsilate ral oblique view, co-axial approach, 22 gauge 6 inch spinal needle was advanced to the base of the L-5. pedicle(s). The needle was advanced to the superio-posterior aspect of the neural foramen under later al view. Oblique and AP views were rechecked. Under AP view Omnipaque 240 1 cc's was injected while visualized with fluoroscopy. There was no evidence of intravascular uptake, the epidural space was delineate d. 10 mg Dexamethasone was injected after negative aspiration, at each level, followed by bupivacaine 0.5% 0.25 mL at each level. Outcome: The patient tolerated the proce dure well and had stable vital signs. The patient noted after getting up after the procedure that their left leg pain was at a 0 out of 10 level with some persistent paresthesia.. Follow up plans and appointments were di scussed with Ms. Lerma. The patient was observed in the pain clinic and then discharged after having met discharge criteria to the care of a hydraulic lift driver. The patient received written instructions as documented in [facility] records. Disposition: Ms. Lerma was discharged fr om the procedure suite without new neurological complaints. Follow-up: Follow up with Dr. Smith as scheduled or PRN. Procedure performed today by resident/silvana kuhn under direct supervision of Mark Valentin DO. EFRAIN JOVEL DO 03/17/2014 Fellow, Pain Management Center I was the attending physician supervisin g the resident in the above care and I was present with the resident for the entire procedure. MARK VALENTIN DO, MPH ABPMR-subspecialty board certification i n Pain Medicine Attending Physician-Pain Management CC: Lourdes Smith MD [address] [place] [id number] Mark Newby DO PROCEDURE/MINOR SURGICAL ORD ERABLES documented in this encounter Visit Diagnoses Diagnosis Displacement of lumbosacral intervertebr al disc - Primary Displacement of lumbar intervertebral di sc without myelopathy documented in this encounter Care Teams Nuisance Wildlife Specialist Relationship Specialty Start Date End Date Lourdes Smith MD PCP - General 05/08/[address] [place] [phone] documented as of this encounter
--- OUTSIDE RECORDS SUMMARY | 2022-01-06 00:19 | XMS_ITS | Encounter Summary ---
:1965 Author Organization [facility] [place] [address] Care Team Providers Name Role Phone Lourdes Smith MD Primary Care Provider Encounter Details Date Type Department Care Team Description 06/08/2021 Ancillary Procedure Radiology Library at Lourdes Smith MD [facility] [address] [facility] [id number] [place] [phone] [phone] Social History Tobacco Use Types Packs/Day Years Used Date Former Smoker 07 08 Quit: 02/06/20 13 Alcohol Use Standard Drinks/Week Comments No 0 (1 standard drink = 0.6 oz pure alcoho l) Sex Assigned at Date Recorded Not on file documented as of this encounter Plan of Treatment Not on filedocumented as of this encounter Procedures Procedure Name Priority Date/Time Associated Diagnosis Comme nts FILM LIBRARY Routine 06/08/2021 12:00 AM Results for this STORAGE ONLY MR EST procedure ar e in SPINE the results section. documented in this encounter Results Film Library- Storage Only MR Spine (06/08/2021 12:00 AM EST) Specimen (Source) Anatomical Location Collection Method / Collectio n Time Received Time / Laterality Volume Narrative [facility] - 06/09/2021 8:40 AM EST This exam is auto-finalizing. It's purpo se is for storage only. Lourdes Smith MD G FILM LIBRARY ORDERABLES Performing Organization Address City/State/ZIP Code Phon e Number [place], [place] documented in this encounter Visit Diagnoses Not on filedocumented in this encounter Care Teams Video Coordinator Relationship Specialty Start Date End Date Lourdes Smith MD PCP - General 05/08/13 [address] [place] [address] documented as of this encounter
--- OUTSIDE RECORDS SUMMARY | 2022-01-06 00:19 | XMS_ITS | Encounter Summary ---
:1965 Author Organization [facility] [place] [address] Care Team Providers Name Role Phone None Primary Care Provider Unavailable Encounter Details Date Type Department Care Team Description 04/22/2013 External Results Medical Records Provider, [place] [address] Social History Tobacco Use Types Packs/Day Years Used Date Former Smoker Sex Assigned at Date Recorded Not on file documented as of this encounter Plan of Treatment Not on filedocumented as of this encounter Procedures Procedure Name Priority Date/Time Associated Diagnosis Comme nts SURGICAL PATHOLOGY SCAN Routine 04/22/2013 documented in this encounter Results Scan Doc: Surgical Pathology (04/22/2013) Narrative This result has an attachment that is no t available. Maki Hutchison MD MEDIA MGR SCAN EXT ORDR/RSLT documented in this encounter Visit Diagnoses Not on filedocumented in this encounter Care Teams Corporate Tax Manager Relationship Specialty Start Date End Date None PCP - General 04/15/13 05/07/13 None documented as of this encounter
--- OUTSIDE RECORDS SUMMARY | 2022-01-06 00:19 | XMS_ITS | Encounter Summary ---
:1965 Author Organization [facility] [place] [address] Care Team Providers Name Role Phone Lourdes Smith MD Primary Care Provider Encounter Details Date Type Department Care Team Description 05/30/2013 Telephone [facility]ology at [facility] [place] Danielle Drake, [place] [address] Social History Tobacco Use Types Packs/Day Years Used Date Former Smoker Sex Assigned at Date Recorded Not on file documented as of this encounter Miscellaneous Notes Telephone Encounter - Danielle Drake, RN - 05/30/2013 3:00 PM EST Patient called and left a message asking for results of labs done 05/08/13. RN returning call to patient, no answer. Will ask Dr Hutchison to review labs. documented in this encounter Plan of Treatment Not on filedocumented as of this encounter Visit Diagnoses Not on filedocumented in this encounter Care Teams Security Infrastructure Engineer Relationship Specialty Start Date End Date Lourdes Smith MD PCP - General 05/08/13 [address] [place], [place] [id number] documented as of this encounter
--- OUTSIDE RECORDS SUMMARY | 2022-01-06 00:19 | XMS_ITS | Encounter Summary ---
:1965 Author Organization [facility] [place] [address] Care Team Providers Name Role Phone Lourdes Smith MD Primary Care Provider Encounter Details Date Type Department Care Team Description 06/03/2013 Telephone Gastroenterology at [facility] Maki Hutchison MD [facility] [place] [address] GASTROENTEROLOGY DEPT [phone] [place], [place] [address] (Wo rk) Social History Tobacco Use Types Packs/Day Years Used Date Former Smoker Sex Assigned at Date Recorded Not on file documented as of this encounter Miscellaneous Notes Telephone Encounter - Maki Hutchison H - 06/03/2013 8:59 AM EST Mrs. 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 Mccormick) unrevealing, CT scan a/p with small bowel irregular thickening, s/p 01/29 segmental small bowel resection 30 cm from TI/LN bx without evidence of malignancy, focal ulcerations mucosa-superficial sub mucosa/vague ischemic injury, no chronicity, gross path mild cobblestoning, loss of intestinal folds, creeping fat on serosa-->second read here at [facility] c/w Crohn's enteritis. Of note, post resection CRP/MRE WNL. Repeat labs with good Hb response (normal MCV, Hb 11.6) but with persistent low ferritin/iron saturation, her case was discussed at our pathology conference. Plan to repeat colonoscopy with ileal intubation to evaluate anastamosis/biopsies. As patient is currently not on any medications in regards to Crohn's. Plan discussed with patient this AM. documented in this encounter Plan of Treatment Not on filedocumented as of this encounter Procedures Procedure Name Priority Date/Time Associated Diagnosis Comme nts COLONOSCOPY Routine 06/03/2013 9:08 AM EST Anemia, iron defic iency documented in this encounter Visit Diagnoses Diagnosis Anemia, iron deficiency - Primary Iron deficiency anemia, unspecified documented in this encounter Care Teams Finisher Tailor Apprentice Relationship Specialty Start Date End Date Lourdes Smith MD PCP - General 05/08/13 [address] [place] [address] documented as of this encounter
--- OUTSIDE RECORDS SUMMARY | 2022-01-06 00:19 | XMS_ITS | Clinical Summary ---
:1965 Author Organization [facility] [place] [address] Care Team Providers Name Role Phone Lourdes Smith MD Primary Care Provider Allergies Active Allergy Reactions Severity Noted Date Comments Nickel Rash Medium 10/03/2013 Sulfa (Sulfonamide Antibiotics) High CIS - Urticaria Medications Medication Sig Dispensed Refills Start Date End Date Status docusate sodium Take 100 mg by 0 Active (COLACE) 100 mg capsule mouth daily. polyethylene glycol Take 17 g by 0 Active (MIRALAX) 17 gram/dose mouth as powder needed. cyanocobalamin 1,000 Take 1,000 mcg 0 Active mcg Tablet by mouth daily. gabapentin (NEURONTIN) Per patient 300 capsule 3 04/30/2014 Active 300 mg Capsule instructions. Maximum is 3600 mg/day Active Problems Problem Noted Date Thoracic or lumbosacral neuritis or radiculitis, unspe cified 05/05/2014 Immunizations Name Administration Dates Next Due Hepatitis B Vaccine, unspecified 12/16/2005, 04/19/2005, 06/2004 formulation Social History Tobacco Use Types Packs/Day Years Used Date Former Smoker 1 20 Quit: 02/06/20 13 Alcohol Use Standard Drinks/Week Comments No 0 (1 standard drink = 0.6 oz pure alcoho l) Sex Assigned at Date Recorded Not on file Last Filed Vital Signs Vital Sign Reading Time Taken Comments Blood Pressure 130/58 04/30/2014 7:21 AM EST Pulse 54 04/30/2014 7:21 AM EST Temperature - - Respiratory Rate 18 03/17/2014 4:48 PM EDT Oxygen Saturation 100% 04/30/2014 7:21 AM EST Inhaled Oxygen Concentration - - Weight 76.7 kg (169 lb) 04/30/2014 7:21 AM EST Height 165.1 cm (5' 5) 04/30/2014 7:21 AM EST Body Mass Index 28.12 04/30/2014 7:21 AM EST Plan of Treatment Health Maintenance Due Date Last Done Comments Covid-19 Vaccine (#1) 02/28/1969 HIV screen 02/28/1982 Hepatitis C Screening 02/28/1982 Tdap adult 02/28/1983 Tetanus vaccine 02/28/1983 HPV test 02/28/1994 PAP Smear 02/28/1994 Breast Cancer Share Decision Needed 2004 Breast Cancer screening 02/28/2014 Zoster vaccine (1 of 2) 02/28/2014 Advance Directive 02/28/2019 Influenza (Flu) vaccine (1 of - 02/17/2022 Influenza standard series) Colonoscopy 06/20/2023 06/20/2013, 06/20/2013, 06/03/2013 Insurance Payer Benefit Plan Subscriber ID Effective Dates Phone Address Type / Group [facility] [id number] 2021-Prese [phone] [address] [facility] [address] [facility] [id number] Care Teams Bioinformatics Programmer Relationship Specialty Start Date End Date Lourdes Smith MD PCP - General 05/08/13 [address] [place] [address]
--- OUTSIDE RECORDS SUMMARY | 2022-01-06 00:19 | XMS_ITS | Encounter Summary ---
:1965 Author Organization [facility] [place] [address] Care Team Providers Name Role Phone Lourdes Smith MD Primary Care Provider Encounter Details Date Type Department Care Team Description 05/21/2015 Interpretation Only Radiology at [facility] Ce nter None [address] [place] [address] [place] [address] Social History Tobacco Use Types Packs/Day [...] Name Priority Date/Time Associated Diagnosis Comme nts XR FLUORO NO RAD Routine 05/21/2015 6:36 AM Resul ts for this <1HR - RADIOLOGY EST procedure a re in USE the results section. documented in this encounter Results XR Fluoro <1Hr - Radiology Use (05/21/2015 6:36 AM EST) Anatomical Region Laterality Modality N/A Radiographic Imaging Specimen (Source) Anatomical Collection Method Collection Time Re ceived Time Location / / Volume Laterality 05/21/2015 6:36 AM EST Narrative 05/21/2015 6:36 AM EST APD Historical Result Principal Wide Area Network Engineer: ?CARLY ??IZZY C-ARM FLUOROSCOPY: CLINICAL HISTORY: ??Left L4-5 medial fac etectomy, L5 foraminotomy. Two lateral fluoroscopic spot images of the lumbosacral spine region are submitted, obtained during a procedure performed by Dr Arianna perez. ??The initial image demonstrates partial visualization of what may represent a needle posteriorly. ??Subsequent image demonstrates surgical instruments and material. ??Please see operative rep ort. ??No Radiologist was involved in the procedure. ?? Fluoro time 6 seconds. ??Dose 5.27 mGy. Constantine Magana MD Harriet [id number] Procedure Note Unknown - 12/17/2018Formatting of this n ote might be different from the original. APD Historical Result Principal Wide Area Network Engineer: CONSTANTINE MAGANA C-ARM FLUOROSCOPY: CLINICAL HISTORY: Left L4-5 medial facet ectomy, L5 foraminotomy. Two lateral fluoroscopic spot images of the lumbosacral spine region are submitted, obtained during a procedure performed by Dr Arianna perez. The initial image demonstrates partial visualization of what may represent a needle posteriorly. Subsequent image demonstrates surgical instruments and material. Please see operative repor t. No Radiologist was involved in the procedure. Fluoro time 6 seconds. Dose 5.27 mGy. Constantine Magana MD Harriet [id number] Unknown IMG FLUORO ORDERABLES documented in this encounter Visit Diagnoses Not on filedocumented in this encounter Care Teams Agricultural Agent Relationship Specialty Start Date End Date Lourdes Smith MD PCP - General 05/08/[address] [place] [address] documented as of this encounter
--- OUTSIDE RECORDS SUMMARY | 2022-01-06 00:19 | XMS_ITS | Encounter Summary ---
:1965 Author Organization [facility] Address [facility] [place] [address] Care Team Providers Name Role Phone Lourdes Smith MD Primary Care Provider Encounter Details Date Type Department Care Team Description 01/31/2014 Hospital Encounter MRI at [facility], DR ANTONINO [facility] Lourdes Baker MD [address] [place] [address] [place] [address] Social History Tobacco Use Types Packs/Day [...] 0 (MIRALAX) 17 gram/dose as needed. powder pantoprazole (PROTONIX) Take 1 tablet by 90 [...] Name Priority Date/Time Associated Diagnosis Comme nts MRI LUMBAR SPINE Routine 01/31/2014 6:15 PM Resul ts for this WITHOUT CONTRAST EDT procedure a re in the results section. 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 Comparison None. Findings The partially imaged retroperitoneum is normal. There is a dextro convex scoliosis of th e lumbar spine. Marrow signal is normal. The conus ends at L2. ?? Multilevel degenerative changes are pres ent with disc signal and height loss. ?? Disc bulges are present at L2-L3 and L4- L5 without any significant neural foraminal or central canal stenosis. ??A disc bulge and left foraminal disc protrusion along with facet arthropathy results and moderate left neural foraminal narrowing at L5-S1 secondary. Impression 1. ??Moderate left L5-S1 neural foramina l stenosis secondary to foraminal disc protrusion and facet arthropathy. Comment: The following findings are so c ommon in people without low back pain that while we report their presence, the y must be interpreted with caution and in the context of the clinical situation . (Reference-Marcelok et al, Spine 2001) Findings: (prevalence in patients withou t low back pain), Disk degeneration (decreased T2 signal, height loss, bulge ) (91%), Disk T2-signal loss (83%), Disk height loss (56%), Disk bulge (64%) , Disk protrusion (32%), Annular fissure (38%). Film and interpretation reviewed by the attending Procedure Note Ruben Bob MD - 02/03/2014Format ting of this note might be different from the original. 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 Comparison None. Findings The partially imaged retroperitoneum is normal. There is a dextro convex scoliosis of th e lumbar spine. Marrow signal is normal. The conus ends at L2. Multilevel degenerative changes are pres ent with disc signal and height loss. Disc bulges are present at L2-L3 and L4- L5 without any significant neural foraminal or central canal stenosis. A d isc bulge and left foraminal disc protrusion along with facet arthropathy results and moderate left neural foraminal narrowing at L5-S1 secondary. Impression 1. Moderate left L5-S1 neural foraminal stenosis secondary to foraminal disc protrusion and facet arthropathy. Comment: The following findings are so c ommon in people without low back pain that while we report their presence, the y must be interpreted with caution and in the context of the clinical situation . (Reference-Marcelok et al, Spine 2001) Findings: (prevalence in patients withou t low back pain), Disk degeneration (decreased T2 signal, height loss, bulge ) (91%), Disk T2-signal loss (83%), Disk height loss (56%), Disk bulge (64%) , Disk protrusion (32%), Annular fissure (38%). Film and interpretation reviewed by the attending Lourdes Smith MD IMG MRI ORDERABLES documented in this encounter Visit Diagnoses Not on filedocumented in this encounter Care Teams Steam Shovel Runner Relationship Specialty Start Date End Date Lourdes Smith MD PCP - General 05/08/13 [address] [place] [address] documented as of this encounter
--- OUTSIDE RECORDS SUMMARY | 2022-01-06 00:19 | XMS_ITS | Encounter Summary ---
:1965 Author Organization [facility] [address] Care Team Providers Name Role Phone Lourdes Smith MD Primary Care Provider Encounter Details Date Type Department Care Team Description 10/30/2013 Telephone G[place]enterology at [facility] [place] [address] Social History Tobacco Use Types Packs/Day Years Used Date Former Smoker 1 Quit: 02/06/20 13 Alcohol Use Standard Drinks/Week Comments No 0 (1 standard drink = 0.6 oz pure alcoho l) Sex Assigned at Date Recorded Not on file documented as of this encounter Miscellaneous Notes Telephone Encounter - Marie Haywood - 10/30/2013 10:54 AM EDT Patient calling in waiting for testing results. Would like call back. documented in this encounter Plan of Treatment Not on filedocumented as of this encounter Visit Diagnoses Not on filedocumented in this encounter Care Teams Sales Enablement Analyst Relationship Specialty Start Date End Date Lourdes Smith MD PCP - General 05/08/13 [address] [place] [address] documented as of this encounter
--- OUTSIDE RECORDS SUMMARY | 2022-01-06 00:19 | XMS_ITS | Encounter Summary ---
:1965 Author Organization [facility] [place] [address] Care Team Providers Name Role Phone Lourdes Smith MD Primary Care Provider Encounter Details Date Type Department Care Team Description 06/20/2013 Hospital Encounter Gastroenterology at [facility] Flaquito Mo MD [facility] [place] [address] [facility] Frances Osborne MD [facility] [place] [address] [place] [address] Social History Tobacco Use Types Packs/Day [...] occurs please contact your M.D. Please call [phone] before 5 pm with problems, questions or concerns. After 5pm call [phone] and ask to speak with the family support specialist vice president of talent acquisition. Discharge instructions reviewed with patientwho expresses understanding. AttachmentsThe following attachments cannot be sent through Care Everywhere. COLONOSCOPY: WHAT TO EXPECT AT HOME (ZIMBABWEAN)documented in this encounter Medications at Time of [...] Surgical Pathology Report (06/20/2013 5:24 PM EST) [facility] gist Method Time Signature Surgical CERNER Pathology ? [facility] Report ? Provider: ?? FRANCES HANSON ?Pt. Name: ?? EMERALD , RIN L ? Acc #: ?[id number] ?Pt. MRN: ?[id number] ? Col Date: ?? 06/20/2013 ?/Sex: ?1965,(48 [...] MD PATHOLOGY/CYTOLOGY ORDERABLE S Performing Organization Address City/[facility]/[place] [address] CERNER MILLENNIUM Specimen to [...] MD PATHOLOGY/CYTOLOGY ORDERABLE S Performing Organization Address City/[facility]/ZIP Code Phon e Number [address] CERNER MILLENNIUM Specimen to [...] MD PATHOLOGY/CYTOLOGY ORDERABLE S Performing Organization Address City/[facility]/[place] [address] CERNER MILLENNIUM COLONOSCOPY (06/20/2013 4:35 PM EST) Component Value Ref Test Analysis Performed At [facility] Range Method Time Signature COLONOSCOPY [facility] PROVATION Endoscopy Patient Name: Rin Lerma ? Procedure Date: 06/20/2013 4:35 PM ? Date of : 1965 ? Age: 48 ? Order #: [id number] ? Procedure: ? Colonoscopy Indications: ? Iron deficiency anemia Providers: ? Frances Hanson, Enrique Paul , ? RN, Lourdes Rodriguez, Document Control Clerk , Maki ? MD Foster Referring MD: ?Lourdes Smith MD Medicines: ? Midazolam 3.5 [...] rice the ? nurse. The procedure was peng pino in ? the pre-procedure area in the [...] PROVATION documented in this encounter Visit Diagnoses Not on filedocumented in this encounter Administered Medications Inactive Administered Medications - up to 3 most recent administrations Medication Order MAR Action Action Date Dose Rate Site sodium chloride 0.9% New Bag 06/20/2013 4:00 PM EST 50 mL/hr 50 mL/hr infusion 50 mL/hr, Intravenous, CONTINUOUS, Starting on Rachel [...] 06/18/2013 06/19/2013 06/20/2013 fentaNYL 50mcg/mL injection (CANCELED) 164 (Given - Provider: Enrique Frank RN)164 (Given - Provider: Enrique Frank RN)165 (Given - Provider: Enrique Frank RN)1658 (Given - Provider: Enrique Frank RN) ONCE PRN, Starting Rachel 14 at 1647, U ntil Rachel /2/14 at 1757, Pain, Intra- Operative (Intra-Procedure), Routine midazolam (VERSED) injection (CANCELED) 164 (Given - Provider: Enrique Frank RN)164 (Given - Provider: Enrique Frank RN)165 (Given - Provider: Enrique Frank RN)1658 (Given - Provider: Enrique Frank RN) ONCE PRN, Starting Rachel /14 at 1647, U ntil Rachel 06/20/13 at 1757, Sleep, Intra- Operative (Intra-Procedure), Routine documented in this encounter Care Teams Devulcanizer Tender Relationship Specialty Start Date End Date Lourdes Smith MD PCP - General 05/08/13 [address] [place] [address] documented as of this encounter
--- OUTSIDE RECORDS SUMMARY | 2022-01-06 00:19 | XMS_ITS | Encounter Summary ---
:1965 Author Organization [place] [address] Care Team Providers Name Role Phone Lourdes Smith MD Primary Care Provider Reason for Visit Reason Comments Pain Management Back Pain radiates down left leg Encounter Details Date Type Department Care Team Description 03/17/2014 Office Visit Pain Management at Mark Valentin DO Herniation of lumbar intervertebral disc with radiculopathy (Primary Dx); [facility] Lumbar spondylosis [facility] [place] [phone] Social History Tobacco Use Types Packs/Day Years Used Date Former Smoker 1 20 Quit: 02/06/20 13 Alcohol Use Standard Drinks/Week Comments No 0 (1 standard drink = 0.6 oz pure alcoho l) Sex Assigned at Date Recorded Not on file documented as of this encounter Last Filed Vital Signs Vital Sign Reading Time Taken Comments Blood Pressure 137/58 03/17/2014 3:00 PM EDT Pulse 58 03/17/2014 3:00 PM EDT Temperature - - Respiratory Rate - - Oxygen Saturation 100% 03/17/2014 3:00 PM EDT Inhaled Oxygen Concentration - - Weight 75.3 kg (166 lb) 03/17/2014 3:00 PM EDT Height 165.1 cm (5' 5) 03/17/2014 3:00 PM EDT Body Mass Index 27.62 03/17/2014 3:00 PM EDT documented in this encounter Progress Notes Mark Valentin DO - 03/18/2014 10:14 AM EDT I have seen the patient and reviewed the resident's above history and I agree with the details as written. The assessment and plan were formulated in discussion with me and I agree with them as documented. Pertinent History/Exam: Left leg pain in the L5 dermatomal distribution X 2.5 months. L5-S1 disc in the left L5-S1 foramen. Signs consistent with left L5 irritation Major issues addressed: Discussed transforaminal SELIN at the left L5-S1 level in detail and she did consent. Plan: Completed procedure today. I would like for her to call back in 4-6 weeks to see how she is doing. If she is <100% and >50% better in terms of her left leg pain, we will recommend a second injection. She understands. MARK VALENTIN DO, [facility]-subspecialty board certification in Pain Medicine Attending Physician-Pain Management Efrain Jovel DO - 03/17/2014 5:16 PM EDT Referring Provider Dr Smith Chief complaint: Chief Complaint Patient presents with ??? Pain Management ??? Back Pain radiates down left leg Subjective: Patient is a 49 y.o. female seen today for evaluation and recommendations regarding back pain and left leg sciatica. She has a history of chronic intermittent back pain, dating back to 1997. She reports increase in her back pain approximately one year ago. She was then diagnosed with possible inflammat ory bowel disease and subsequently underwent a small bowel resection. In the intervening year, her back pain has continued to be progressive midline to left- sided. In December of 2013, approximately 2 and half months ago, she began developing left sided leg pain. She now rates her leg pain as 90% and 10% in her back. She describes this as sciatica, bringing in a magazine graphic showing the typical distribution of sciatica. She rates her pain currently 8/10. It is described as gradually progressive tingling and burning type pain. This distribution goes from the left buttock through the posterior thigh, lateral leg and into the lateral and dorsum aspect of left foot. 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 Treatment History Summary Current Pain Medications Gabapentin, 200 mg each bedtime for the past 2 months She has not utilized arce-pkb-ygzrewl nonsteroidal anti-inflammatories at the recommendation of Dr. Smith due to her GI issues. Posterior, she is also avoids acetaminophen for the same reasons. Past Pain Medications None Physical Therapy 2 months: Including stretches, and lumbopelvic stabilization exercises (these do not exacerbate her pain, but she has shown no improvement) Topical heat Injections None Surgery None Patient's History Pertinent Past Medical History: #1 small bowel resection, January 2013, possibly secondary to inflammatory bowel disease #2 anemia #3 left shoulder pain, chronic Pertinent Past Surgical History: #1 Small Bowel resection, 2012 #2 hysterectomy #3 cholecystectomy Pertinent Social History: She is , mother of 2 adult children. 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 She tends her garden other various outdoor chores. She previously walked on a regular basis with her but is no longer able to do so because of her pain. She does not drink alcohol. She quit smoking one year ago, previously with a 12-sebp-txig history Pertinent Family History: there is no family history of inflammatory conditions, back pain. She does have numerous members of her mother's family with unspecified arthritis Review of systems: A comprehensive review of systems was obtained during today's visit and was negative unless noted below: Review of Systems was negative for Red Flags; including no fever, chills, night sweats, weight loss,intractable pain, night pain, or progressive neurologic symptoms. Medications: Medications 03/17/14 1623 Medication Sig Taking? cyanocobalamin 1,000 mcg Tablet Take 1,000 mcg by mouth daily. Yes docusate sodium (COLACE) 100 mg capsule Take 100 mg by mouth daily. Yes gabapentin (NEURONTIN) 100 mg capsule Take 100 mg by mouth nightly. 1-2 tablets nightly Yes polyethylene glycol (MIRALAX) 17 gram/dose powder Take 17 g by mouth as needed. Yes Allergies: Allergies Allergen Reactions ??? Sulfa (Sulfonamide Antibiotics) CIS - Urticaria ??? Nickel Rash Objective: Filed Vitals: 03/17/14 1500 BP: 137/58 Pulse: 58 Physical Examination General: Sitting examination room, in mild discomfort shifting positions regularly. She is accompanied by her . HEENT: Normocephalic. Extraocular motions fully intact Pulmonary: Breathing comfortably, no wheezes Cardiovascular: Pulses are palpable and equal in the upper and lower extremities. Rate is regular GI: Abdomen is nondistended, nonobese Neurologic: Cranial Nerves: Grossly intact Gait/Station: Antalgic gait favoring the left lower extremity. There is no obvious foot drop, or Trendelenburg sign Muscle Strength: Pain inhibited on the left with heel raises, limiting to 2 repetitions on the left,and easily able to finish 10 repetitions on the right. There is L5 distribution weakness on the leftincluding ankle eversion, ankle dorsiflexion, and extensor hallucis longus at 4/5. The remainder of the left lower extremity is normal. Right leg normal strength throughout Muscle Stretch Reflexes reflexes are generally brisk in the upper and lower extremities, +3/4. Achilles and quadriceps reflexes are symmetric bilaterally. The left internal hamstrings reflex (L5) is diminished on the left and present on the right. Wade???s reflex negative. Plantar response: (right/left): Down/down. Coordination: Grossly intact. Sensation: Decreased light touch and pinprick sensation in the lateral leg and dorsal lateral aspectof the left foot in an L5 distribution. There is no allodynia hyperpathia or hyperalgesia.. Musculoskeletal: Spine: Pain inhibited lumbar flexion, side bending, and rotation Hips: Normal range of motion in flexion and extension of both hips. Internal and external rotation is nonpainful. Snow positioning is positive for reproduction of low back pain on the left. Palpation: Paramedian and left lateral soft tissue lumbosacral tenderness. She is also tender through the sciatic notch and into the posterior thigh over the distribution of the sciatic nerve. Skin: No rashes or lesions. Heme: No lymphadenopathy in the lower extremities Medical Decision Making Data reviewed: ?? Consultation notes from Dr. Smith are reviewed, dated 01/09/14. Past medical history and historyof present illness notes are incorporated as outlined above. Radiology reviewed: ?? MRI lumbar spine without contrast 01/31/2014: Mild scattered degenerative changes throughout the lumbar spine, most notably at the L5-S1 interspace where there is left paramedian and lateral disc protrusion combining with L5-S1 facet arthropathy producing neuroforaminal stenosis and contact of the exiting L5 nerve root on the left. [place] [employer] System queried. Entries present: No Inconsistencies were not present. Assessment: #1 left L5 radiculopathy #2 left L5/S1 neuro foraminal stenosis, secondary to disc bulge and facet arthropathy #3 lumbar spondylosis, without myelopathy Mrs Lerma presents today with 2 half month history of progressive pain with the physical exam, history, and radiographic evidence of a left L5 radiculopathy. She has been engaged in conservative treatments with gabapentin and physical therapy including a lumbopelvic stabilization program. She has failed to respond to these conservative efforts and continues to have functionally limiting pain. We discussed the natural course of lumbar radiculopathy. In her setting, with multifactorial contributors including her facet arthrosis, a fixed condition, along with the foraminal disc herniation, she may nothave spontaneous resolution in the short-term. We discussed various treatment options, including rekha icosteroid injection, surgical referral, and continued medication management. At the advice of her primary care provider, we'll avoid the use of nonsteroidal anti-inflammatories. She could consider theaddition of acetaminophen. We would recommend up titrating her gabapentin as outlined below. After discussing the risks and benefits of transforaminal epidural steroid, she has elected to proceed with this injection today. She will followup with us in 2-3 weeks with the response of her injection. If she is unable to achieve satisfactory pain improvement with conservative efforts, she may benefit from a surgical consultation. Thank you so much for allowing us to participate in her care. She followup with our clinic at any time. She will call with the results of her injection. Plan: ?? Left L5-S1 transforaminal steroid injection (see procedure note from today) ?? Increased gabapentin, presently at 200 mg each bedtime. Add 100 mg every 3-5 days in a 3 times a day dosing regimen. If limited by side effects decrease dose by one tablet and call our office. Max dose recommended at this time is 300 mg 3 times per day. If she tolerates this and is showing benefits, she may increase her doses up to a maximum of 2700 mg per day may be reasonable. She is dose limited by the Neurontin dosing, documentation of treatment failure can be made and I would consider a trial of pregabalin beginning and 50 mg nightly, and titrating to effect. Gabapentin titration schedule was provided to the patient today. ?? She should continue with her physical therapy exercise program and her home exercise program. ?? If she receives benefit from today's steroid injection, this may be repeated, up to 3 or 4 per year. If no improvement from the injection and medication titration, may consider surgical referral for decompression Patient was seen and staffed with Dr. Valentin, who is in agreement with the above outlined treatment plan. EFRAIN JOVEL DO 03/17/2014 Fellow[facility] CC: Dr Cherelle Smith documented in this encounter Plan of Treatment Not on filedocumented as of this encounter Visit Diagnoses Diagnosis Herniation of lumbar intervertebral disc with radiculopathy - Primary Intervertebral lumbar disc disorder with myelopathy, lumbar region Lumbar spondylosis Lumbosacral spondylosis without myelopat hy documented in this encounter Care Teams Butcher Relationship Specialty Start Date End Date Lourdes Smith MD PCP - General 05/08/13 [address] [place] [address] documented as of this encounter
--- OUTSIDE RECORDS SUMMARY | 2022-01-06 00:19 | XMS_ITS | Encounter Summary ---
:1965 Author Organization [facility] [place] [address] Care Team Providers Name Role Phone Lourdes Smith MD Primary Care Provider Encounter Details Date Type Department Care Team Description 10/28/2013 Hospital Encounter XRay at [facility] [place] Anemia, iron 1 [facility] Dr Kenny MD deficiency [facility] [id number] [place] [phone] [place] [address] Social History Tobacco Use Types Packs/Day Years [...] Date/Time Associated Diagnosis Comme nts XR FLUORO SMALL Routine 10/28/2013 11:36 AM Resul ts for this BOWEL ONLY EDT procedure are i n the results section. documented in this encounter Results XR Fluoro small bowel only (10/28/2013 11:36 AM EDT) Anatomical Region Laterality Modality Abdomen N/A Radiographic Imaging Specimen (Source) Anatomical Collection Method Collection Time Re ceived Time Location / / Volume Laterality 10/28/2013 11:36 AM EDT Addenda Addendum on 10/28/2013 1:09 PM EDT Addendum Begins Addendum Should read. The small bowel wa s studied to the level of the cecum Addendum Ends Addendum on 10/28/2013 1:09 PM EDT Addendum Begins Addendum Should read. The small bowel wa s studied to the level of the cecum Addendum Ends Narrative 10/28/2013 1:08 PM EDT Examination SMALL BOWEL ONLY Clinical History 48 y.o F, hx of enteritis s/p ileal rese ction (30 cm from TI), who has c/o intermittent N/V, distension, evaluate f or SB stricture disease. Comparison CT from 02/01/2013. Technique Fluoro time was 2.25 seconds min. Findings The initial abdominal health tech view shows g as and stool in the colon and a normal bowel gas pattern. ??Cholecystectomy cli ps are seen including 1 which is distant from the other 2. ??There is mild apex l eft scoliosis. ??There is a subtle filling defect in the duodenum which is best seen on the lateral and obliques views. ??It is not clearly seen on the f rontal views. ??This could be mass effect from adjacent structure. ??Small prostat e the level of the cecum. ??There is limited visualization of the terminal il eum but no abnormal loops are seen in the right lower quadrant. ??The anastomo sis was not identified. ??There is no evidence of ulceration. ??There is mild mass effect in the right mid abdomen. Impression ? 1. Filling defect in the descendi ng duodenum as described above. ??Further evaluation is recommended. ? 2. Limited visualization of the t erminal ileum. ? 3. Small area of mass effect in t he right mid abdomen. ??This may be the location of the patient's surgery abdi r anastomotic kareem could not be identified. ? 4. No evidence of stricture Procedure Note Kalpana Hardy MD - 10/28/2013Form atting of this note might be different from the original. Examination SMALL BOWEL ONLY Clinical History 48 y.o F, hx of enteritis s/p ileal rese ction (30 cm from TI), who has c/o intermittent N/V, distension, evaluate f or SB stricture disease. Comparison CT from 02/01/2013. Technique Fluoro time was 2.25 seconds min. Findings The initial abdominal health tech view shows g as and stool in the colon and a normal bowel gas pattern. Cholecystectomy clips are seen including 1 which is distant from the other 2. There is mild apex lef t scoliosis. There is a subtle filling defect in the duodenum which is best seen on the lateral and obliques views. It is not clearly seen on the fro ntal views. This could be mass effect from adjacent structure. Small prostate the level of the cecum. There is limited visualization of the terminal il eum but no abnormal loops are seen in the right lower quadrant. The anastomosi s was not identified. There is no evidence of ulceration. There is mild ma ss effect in the right mid abdomen. Impression 1. Filling defect in the descending duo denum as described above. Further evaluation is recommended. 2. Limited visualization of the termina l ileum. 3. Small area of mass effect in the rig ht mid abdomen. This may be the location of the patient's surgery howeve r anastomotic kareem could not be identified. 4. No evidence of stricture L Kenny Mo MD IMG FLUORO ORDERABLES documented in this encounter Visit Diagnoses Diagnosis Anemia, iron deficiency Iron deficiency anemia, unspecified documented in this encounter Care Teams Marketing Copywriter Relationship Specialty Start Date End Date Lourdes Smith MD PCP - General 05/08/13 [address] [place] [address] documented as of this encounter
--- OUTSIDE RECORDS SUMMARY | 2022-01-06 00:19 | XMS_ITS | Encounter Summary ---
:1965 Author Organization [facility] [place] [address] Care Team Providers Name Role Phone Lourdes Smith MD Primary Care Provider Encounter Details Date Type Department Care Team Description 05/21/2015 Hospital [place] [phone] Social History Tobacco Use Types Packs/Day Years Used Date Former Smoker 1 20 Quit: 02/06/20 13 Alcohol Use Standard Drinks/Week Comments No 0 (1 standard drink = 0.6 oz pure alcoho l) Sex Assigned at Date Recorded Not on file documented as of this encounter Medications at Time of Discharge Medication Sig Dispensed Refills Start Date End Date gabapentin (NEURONTIN) 300 Per patient 300 capsule 3 014 mg Capsule instructions. Maximum is 3600 mg/day cyanocobalamin 1,000 mcg Take 1,000 mcg by 0 Tablet mouth daily. docusate sodium (COLACE) Take 100 mg by 0 100 mg capsule mouth daily. polyethylene glycol Take 17 g by mouth 0 (MIRALAX) 17 gram/dose as needed. powder documented as of this encounter Plan of Treatment Not on filedocumented as of this encounter Procedures Procedure Name Priority Date/Time Associated Diagnosis Comme [facility] SURGICAL PATHOLOGY Routine 05/21/2015 12:00 PM Re sults for this REPORT EST procedure are i n the results section. documented in this encounter Results Surgical Pathology Report (05/21/2015 12:00 PM EST) [facility] Method Time Signature Surgical The signing pathologist has (i) examined the relevant preparation(s) for the [facility] Pathology specimen(s) and (ii) rendered or confirmed the diagnosis(e s). [facility] Report Accession Number: [id number] ?Location: [facility] . ?Surgic al Pathology DIAGNOSIS Cyst, site unspecified, removal: - Synovial cyst 05/22/15 KDL 05/22/15 Verified by: ? Julissa FERREIRA, Ej Stuart ?Dermatopathologist, Bone & Soft Tissue Pathologist ?(Electronic Signature ) The attending pathologist whose signature appears on this re port has reviewed all diagnostic slides and has edited the gross and/ or microscopic portion of the report in veronica dering the final pathologic diagnosis. CLINICAL INFORMATION Specimen Submitted: A - Synovial cyst Clinical History: Synovial cyst, stenosis Clinical Diagnosis: Same Referring Identifier: ??[id number] SPECIMEN PROCESSING A - Labeled/Fixative: Synovial cyst, formalin. Quantity/Size: Multiple, 1.3 x 1.0 x 0.4 cm. Tissue Description: Soft, pink tissues. Sections/Processing: (T1) ??sns Specimen (Source) Anatomical Collection Method Collection Time Re ceived Time Location / / Volume Laterality 05/21/2015 12:00 PM EST Resulting Agency Comment Spec In Lab / [facility] Allie Pillai MD PATHOLOGY/CYTOLOGY ORDERABLE S Performing Organization Address City/State/[place] [address] [facility] documented in this encounter Visit Diagnoses Not on filedocumented in this encounter Care Teams Main Entree Cook And Cashier Relationship Specialty Start Date End Date Lourdes Smith MD PCP - General 05/08/13 [address] [place] [address] documented as of this encounter
--- OUTSIDE RECORDS SUMMARY | 2022-01-06 00:19 | XMS_ITS | Encounter Summary ---
:1965 Author Organization [facility] [place] [address] Care Team Providers Name Role Phone Lourdes Smith MD Primary Care Provider Encounter Details Date Type Department Care Team Description 10/31/2013 Telephone Gastroenterology at [facility] [place] [address] Social History Tobacco Use Types Packs/Day Years Used Date Former Smoker 1 20 Quit: 02/06/20 13 Alcohol Use Standard Drinks/Week Comments No 0 (1 standard drink = 0.6 oz pure alcoho l) Sex Assigned at Date Recorded Not on file documented as of this encounter Miscellaneous Notes Telephone Encounter - Angela Gamez RN - 10/31/2013 9:03 AM EDT Rin calling back today, stating she had called 3 x this week wanting the results of her SBFT thatshe had done this past Monday, October 28. See previous notes from this week regarding patient calls. Patient upset that she has not heard anything back. Will let Dr. Hutchison know via text page and In-Basket. Encouraged patient to call me back this afternoon if she has not heard anything, patient had calmed down and was in agreement to plan. documented in this encounter Plan of Treatment Not on filedocumented as of this encounter Visit Diagnoses Not on filedocumented in this encounter Care Teams Entrepreneurship Program Director Relationship Specialty Start Date End Date Lourdes Smith MD PCP - General 11/20/13 [address] [place] [address] documented as of this encounter
--- OUTSIDE RECORDS SUMMARY | 2022-01-06 00:19 | XMS_ITS | Encounter Summary ---
:1965 Author Organization [facility] [place] [address] Care Team Providers Name Role Phone Lourdes Smith MD Primary Care Provider Reason for Visit Reason Comments Follow-up Encounter Details Date Type Department Care Team Description 10/03/2013 Follow-Up Gastroenterology at [facility] Foster, Maki, Anemia, iron [facility] Sade forde MD deficiency ([place] [address] [facility]) [phone] [facility] [place] [address] Social History Tobacco Use Types Packs/Day Years Used Date Former Smoker 1 20 Quit: 02/06/20 13 Alcohol Use Standard Drinks/Week Comments No 0 (1 standard drink = 0.6 oz pure alcoho l) Sex Assigned at Date Recorded Not on file documented as of this encounter Last Filed Vital Signs Vital Sign Reading Time Taken Comments Blood Pressure 111/65 10/03/2013 3:40 PM EDT Pulse 50 10/03/2013 3:40 PM EDT Temperature - - Respiratory Rate - - Oxygen Saturation - - Inhaled Oxygen Concentration - - Weight 71.2 kg (157 lb) 10/03/2013 3:40 PM EDT Height 165.1 cm (5' 5) 10/03/2013 3:40 PM EDT Body Mass Index 26.13 10/03/2013 3:40 PM EDT documented in this encounter Progress Notes Flaquito Mo MD - 10/13/2013 8:14 AM EDT The patient was seen and examined by Dr. Hutchison. I have reviewed the history, physical, assessment and plan, and I agree with them as documented. FosterMaki Laura - 10/03/2013 3:58 PM EDT [facility] Section of Gastroenterology and Hepatology Outpatient Follow Up Note Reason for Visit: focal small bowel enteritis s/p segmental resection, hx of iron deficiency anemia recently worsened, question of Crohn's enteritis Referred by Lourdes Smith, Dr. Mccormick Mrs. Rin Lerma is a 48 y.o. homemaker, [facility] s/o chronic iron def anemia, total hysterectomy in early for menorrhagia , ccy, hx of chronic constipation, chronic iron deficiency anemia (requiring oral iron supplements taken intermittently) since early adulthood, who had initially presented to OSH with gradual fatigue, noted to have microcytic anemia worse from baseline Hb 8.7 (Hb 10.1), s/p EGD/colo (Dr. Mccormick) unrevealing, CT scan a/p with small bowel irregular thickening, s/p 01/29 segmental small bowel resection 30 cm from TI/LN bx without evidence of malignancy, pathology second read likely indicative of Crohn's enteritis. Who has responded in terms of her Hb response w/oral iron supplements (Hb 12.5), with vague GI sx (abd cramping alleviated post defecation, bloating). GI PROBLEM LIST #Crohn's enteritis: -hx of chronic iron deficiency anemia (requiring oral iron supplements) since early adulthood -Hb 8.7 (baseline 10), MCV 78, normal diff, PLT/WBC WNL. LFT's WNL. Iron level low 19, TIBC normal, iron trans sat low at 4 -01/29 s/p EGD/colo (Dr. Mccormick) unrevealing ( mild gastropathy, hyperplastic rectal polyp) -(02/01/13 CT scan for weight loss, abd pain-->small bowel in pelvis posterior to urinary bladder noted to be thickened/irregular, dilation. -Denies NSAID use -s/p 01/29 segmental small bowel resection/LN bx without evidence of malignancy - liver normal, ran the small bowel through port site area in question noted-no active inflammation noted, some palpable mesenteric lymph nodes noted, as well as ascending colon lymph nodes were palpable. Dr. Mccormick proceeded to take lymph node bx, wedge resection with 6 cm margins of small bowel 30 cm proximal to the TI. Pathology resulted: grossly: ulcerations, loss of intestinal folds, mild cobblestoning, creeping fat onto serosa, dilated piece of small bowel, micro: punched out well demarcated ulcers involving mucosa and superficial submucosa, surrounding area hyperplasia, focal vague ischemic pattern of injury, marked fibrosis.collagen bands, no chronic injury, no infectious organisms. -pathology second read:Suggestive of Crohn's disease upon exclusion of specific etiologies Presence of transmural lymphoid infiltrates, fissuring ulcer (slide 10) and focal chronic active mucosal inflammation with pyloric metaplasia support the diagnosis. No evidence of granuloma. -TTG negative -03/31 MRE: unremarkable, post resection, no IBD/mesenteric ischemia -07/02 colo:A 8mm sessile polyp (path HP) was seen in the rectum. Polyp was removed with cold snare polypectomy. Polyp retreived and sent to pathology. The rectum, sigmoid colon, descending colon, transverse colon, ascending colon and cecum appeared normal. The terminal ileum appeared normal in appearance. The anastomotic site was noted visualized. Biopsied (path WNL). No additional abnormalities werefound on retroflexion. INTERVAL HISTORY: Rin Lerma present today for follow up. She reports having 3 BMs daily, no nocturnal sx, as day progresses may become more watery. Stool softener daily despite 3 BM, reports if she stopped taking them then she will get got constipated. No NSAIDs. Associated with cramping which improves post defecation. Last month and a half has noted nausea, at times vomiting of food recently eaten. Denies weight loss, infact upset by her weight gain. Stopped taking her iron pills: 07/02. [facility]: tested, stop taking. Diet: reports eating one meal a day, not enough money. Not eligible for [employer] [facility] programs. -Continues to refrain from smoking 01/29. #Iron deficiency anemia-childhood-->iron supplements, now stopped 09/30 Ferritin 32, iron sat low, MCV/Hb WNL 12.5 #total hysterectomy (20's)metrorrhagia #CCY #tubal ligation, oopherectomy (ovarian cyst) PHYSICAL EXAM: Filed Vitals: 10/03/13 1540 BP: 111/65 Pulse: 50 Height: 165.1 cm (5' 5) Weight: 71.215 kg (157 lb) General: Pleasant, cooperative, NAD, WN/WD HEENT: NC/AT, PERRL, anicteric sclera, MMM, no erythema or exudate Neck: soft, supple, no cervical LAD Chest: CTA bilaterally, no wheeze, rale or rhonchi CVS: Regular rate and rhythm, normal s1/s2, no murmur, rub or gallop ABD: soft, suprapubic/lower abd surgical scar-well healing, RLQ/LUQ, suprapubic tenderness with palpation, non-distended, normal active bowel sounds. No hepatosplenomegaly appreciated Rectal: Deferred Extremities: Warm and well perfused. No clubbing, cynanosis or edema Skin:No rash or lesion Neuro: AAOx3, Grossly non-focal. IMPRESSION: Mrs. Rin Lerma is a 48 y.o. homemaker, [facility] s/o chronic iron def anemia, total hysterectomy in early s for menorrhagia , ccy, hx of chronic constipation, chronic iron deficiency anemia (requiring oral iron supplements taken intermittently) since early adulthood, who had initially presented to OSH with gradual fatigue, noted to have microcytic anemia worse from baseline Hb 8.7 (Hb 10.1), s/p EGD/colo (Dr. Mccormick) unrevealing, CT scan a/p with small bowel irregular thickening, s/p / segmental small bowel resection 30 cm from TI/LN bx without evidence of malignancy, pathology second read likely indicative of Crohn's enteritis. Who has responded in terms of her Hb response w/oral iron supplements (Hb 12.5), with vague GI sx (abd cramping alleviated post defecation, bloating). We discussed given absent sx, normal MRE of small bowel, labs responding to oral iron supplement, colonoscopy with normal TI (unable to reach proximal ileal anastomosis) would defer treatment of nonspecific enteritis. If persistent anemia, would prompt me to work her up further (i.e VCE) and treat her. I will also obtain a SBFT as she reports abd distension/cramping relieved post defecation, nausea/intermittent vomiting post surgery, to rule out SB stricture. I suspect it is functional (IBS-D vs SIBO) but will start with SBFT. RECOMMENDATIONS: -ensure daily BM: Miralax 17 g QHS, encouraged hydration, daily toilet training -avoid NSAIDs -continue PPI QD, oral iron supplement -f/u SBFT Recommend: repeat CBC, iron studies to ensure adequate repletion. If persistent upper GI sx, will consider testing for SIBO as well given recent surgery, abx administration. Mrs. Lerma has my contact information to call me with any questions. She will follow up with me in clinic. Maki Hutchison MD Gastroenterology fellow [id number] documented in this encounter Plan of Treatment Not on filedocumented as of this encounter Procedures Procedure Name Priority Date/Time Associated Diagnosis Comme nts DIFFERENTIAL, Routine 10/03/2013 4:58 PM Results for this AUTOMATED EDT procedure are i n the results section. IRON AND TIBC Routine 10/03/2013 4:58 PM Anemia, iron Results for this EDT deficiency procedure are i n the results section. CBC (WITH DIFF) Routine 10/03/2013 4:58 PM Anemia, iron Result s for this EDT deficiency procedure are i n the results section. CRP, CARDIAC RISK Routine 10/03/2013 4:58 PM Anemia, iron Resu lts for this (HS CRP) EDT deficiency procedure are i n the results section. FERRITIN Routine 10/03/2013 4:58 PM Anemia, iron Results f or this EDT deficiency procedure are i n the results section. documented in this encounter Results Differential, Automated (10/03/2013 4:58 PM EDT) P athologist Signature Neutrophils % 62.1 34.0 - CERNER 71.0 % MILLENNIUM Neutr Abs (ANC) 4.77 1.50 - CERNER 6.30 MILLENNIUM x10(3)/mcL Lymphocytes % 26.8 19.0 - CERNER 53.0 % MILLENNIUM Lymphocytes Abs 2.1 1.0 - 3.6 CERNER x10(3)/mcL MILLENNIUM Monocytes % 7.2 4.0 - 13.0 CERNER % MILLENNIUM Monocyte Abs 0.6 0.2 - 1.0 CERNER x10(3)/mcL MILLENNIUM Eosinophils % 3.5 0.0 - 7.0 CERNER % MILLENNIUM Eosinophils Abs 0.3 0.0 - 0.5 CERNER x10(3)/mcL MILLENNIUM Basophils % 0.3 0.0 - 2.0 CERNER % MILLENNIUM Basophils Abs 0.0 0.0 - 0.2 CERNER x10(3)/mcL MILLENNIUM Immature Gran % 0.10 0.00 - CERNER 0.66 % MILLENNIUM Comment: Immature granulocytes(IG's)percentage an d absolute count will include metamyelocytes, myelocytes, and promyelo cytes. Blood smears from CBCs yielding IG's will be scanned manually for concor dance. If this scan disagrees with the automated IG or if promyelocytes are not ed, a manual differential will be performed. Teresa Gran Abs 0.01 0.00 - 0.05 x10(3)/mcL CER NER MILLENNIUM Specimen Anatomical Collection Method Collection Time Receive d Time (Source) Location / / Volume Laterality Blood specimen 10/03/2013 4:58 PM 014 5:10 (specimen) EDT PM EDT L Kenny Mo MD HEMATOLOGY ORDERABLES Performing Organization Address City/State/ZIP [place] [address] CERNER MILLENNIUM High Sensitivity CRP (10/03/2013 4:58 PM EDT) P athologist Signature CRP High Sens 1.2 mg/L CERNER MILLENNIUM Comment: Interpretations: 1) For accurate cardiac risk assessment, the average of 2 values >2 weeks apart should be obtained (ref 1&2). A value >1 0 mg/L indicates an inflammatory condition, concentrations >10 mg/L shoul d not be used for cardiac risk assessment. ?<1.0 mg/L: low risk ?1.0 - 3.0 mg/L: moderate risk ?>3.0 mg/L: high risk groups for fu ture cardiovascular events 2) The general reference range of appare ntly healthy individuals using this test is <5.0 mg/L (derived from the test package insert) References: 1. Aimee ESCOTO et. al. ??AHA/CDC Scientif ic Statement: Markers of Inflammation and Cardiovascular Disease. ??Circulatio n 2003; 107:499-511 2. Ridker PM. ??Clinical applications of C-reactive protein for cardiovascular disease detection and prevention. ??Circ ulation 2003; 107:363-369 Specimen Anatomical Collection Method Collection Time Receive d Time (Source) Location / / Volume Laterality Blood specimen 10/03/2013 4:58 PM 014 5:10 (specimen) EDT PM EDT Resulting Agency Comment Spec In Lab Flaquito Mo MD CHEMISTRY ORDERABLES Performing Organization Address City/State/ZIP Code Phon e Number [place] [phone] CERNER MILLENNIUM CBC (with Diff) (10/03/2013 4:58 PM EDT) P athologist Signature WBC 7.7 4.0 - 10.0 CERNER x10(3)/mcL MILLENNIUM RBC 4.43 3.93 - 5.22 CERNER x10(6)/mcL MILLENNIUM Hemoglobin 12.5 11.2 - 15.7 CERNER gm/dL MILLENNIUM Hematocrit 38.1 34.0 - 45.0 CERNER % MILLENNIUM MCV 86.0 79.0 - 94.0 CERNER fL MILLENNIUM MCH 28.2 26.6 - 32.2 CERNER pg MILLENNIUM MCHC 32.8 32.0 - 36.5 CERNER gm/dL MILLENNIUM Platelets 214 145 - 370 CERNER x10(3)/mcL MILLENNIUM RDWSD 38.9 35.0 - 46.0 CERNER fL MILLENNIUM RDWCV 12.3 10.9 - 14.4 CERNER % MILLENNIUM MPV 10.4 9.0 - 12.0 CERNER fL MILLENNIUM Specimen Anatomical Collection Method Collection Time Receive d Time (Source) Location / / Volume Laterality Blood specimen 10/03/2013 4:58 PM 014 5:10 (specimen) EDT PM EDT Resulting Agency Comment Spec In Lab L Kenny Mo MD HEMATOLOGY ORDERABLES Performing Organization Address City/[facility]/ZIP [facility] [place] [address] CERNER MILLENNIUM Ferritin (10/03/2013 4:58 PM EDT) athologist Signature Ferritin 32 15 - 150 CERNER ng/mL MILLENNIUM Comment: Pediatric reference ranges not verified at [facility], interpret with caution. Reference ranges for females greater param n 50 years of age approach values for men, i.e., 30-400 ng/mL. Specimen Anatomical Collection Method Collection Time Receive d Time (Source) Location / / Volume Laterality Blood specimen 10/03/2013 4:58 PM 014 5:10 (specimen) EDT PM EDT Resulting Agency Comment Spec In Lab L Kenny Mo MD CHEMISTRY ORDERABLES Performing Organization Address City/[facility]/ZIP Code Phon e Number [address] CERNER MILLENNIUM (ABNORMAL) Iron and TIBC (10/03/2013 4:58 PM EDT) athologist Signature Iron 70 30 - 150 CERNER mcg/dL MILLENNIUM TIBC 360 250 - 450 CERNER mcg/dL MILLENNIUM Iron Saturation 19 (L) 20 - 50 % CERNER MILLENNIUM Specimen Anatomical Collection Method Collection Time Receive d Time (Source) Location / / Volume Laterality Blood specimen 10/03/2013 4:58 PM 014 5:10 (specimen) EDT PM EDT Resulting Agency Comment Spec In Lab L Kenny Mo MD CHEMISTRY ORDERABLES Performing Organization Address City/[facility]/ZIP [place] [address] CERNER MILLENNIUM documented in this encounter Visit Diagnoses Diagnosis Anemia, iron deficiency - Primary Iron deficiency anemia, unspecified documented in this encounter Care Teams Sealer Operator Relationship Specialty Start Date End Date Lourdes Smith MD PCP - General 05/08/13 [address] [place] [address] documented as of this encounter
--- OUTSIDE RECORDS SUMMARY | 2022-01-06 00:19 | XMS_ITS | Encounter Summary ---
:1965 Author Organization [facility] [place] [address] Care Team Providers Name Role Phone Lourdes Farley MD Primary Care Provider Reason for Referral Surgical (Routine) - Entered in Error Specialty Diagnoses / Procedures Referred By Contact Refer red To Contact Neurosurgery / Diagnoses Thoracic or lumbosacral neuritis or radiculitis, unspecified Mark Valentin DO [facility] enter [facility] [place] [id number] Referral ID Status Reason Start Expiration Visits Visits Date Date Requested Authorized [id number] Entered in Consult, 11/01/2014 1 1 Error Test & 4 Treat Reason for Visit Reason Comments Pain Management Back Pain Left Leg Pain Encounter Details Date Type Department Care Team Description 04/30/2014 Follow-Up Pain Management at Mark Valentin DO Thoracic or lumbosacral [facility] neuritis or [facility] [place] [address] [place], [place] [id number] [phone] (Wo rk) Social History Tobacco Use Types [...] AM EST Temperature - - Respiratory Rate - - Oxygen Saturation 100% 04/30/2014 7:21 AM EST Inhaled Oxygen Concentration - - Weight 76.7 kg (169 lb) 04/30/2014 7:21 AM EST Height 165.1 cm (5' 5) 04/30/2014 7:21 AM EST Body Mass Index 28.12 04/30/2014 7:21 AM EST documented in this encounter Patient Instructions Patient InstructionsDenMark liang DO - 04/30/2014 8:03 AM EST Instructions for starting Neurontin (Gabapentin) - each tablet has 300 mg in it. 1200 mg at bed for 5 nights, then 300 mg in the morning and 1200 mg at bed for 5 nights, then 600 mg in the morning and 1200 mg at bed for 5 nights, then 600 mg in the morning and 1500 mg at bed and stay at this dose until instructed further. By the timeyou reach this dose, you should have an appointment with our clinic or your primary care provider todiscuss further treatment. *If you are going to stop this medication, you need to slowly come down on the daily dose just as slowly as you initially went up on the daily dose. Do not suddenly stop the Gabapentin, unless you havea severe allergy to this medication. *If you obtain complete resolution of your nerve pain symptoms, you do not need to go up on the daily dose or Gabapentin. You can just stay at that daily dose. *Side effects from Gabapentin are most likely to occur when starting this medication and when the daily dose is increased. Avoid dangerous situations when starting this medication and the day that thismedication daily dose is increased. documented in this encounter Progress Notes Mark Valentin DO - 05/05/2014 7:55 AM EST Subjective: Patient ID: I have been requested by Dr. Farley for my recommendation regarding the patient's low back and left leg pain. This is Rin Lerma's follow up evaluation by our clinic. This is an established patient for me. History of Present Illness Major changes since the last evaluation None Status of her complaint(s) are worsening Medication side effects None Progress with previously stated goals None Injections/surgeries since last visit She had a left L5 transforaminal epidural steroid injections on 03/17/2014 Imaging since the last visit None Lab work since the last visit None Review of Systems Her review of systems are unchanged. Objective: Physical Exam Constitutional: She appears well-developed and well-nourished. HENT/Head: Normocephalic. Cardiovascular: Normal rate. Pulmonary/Chest: Effort normal. Neurological: She is alert. Psychiatric: She has a normal mood and affect. Her behavior is normal. Her judgment and thought content are normal. Lumbar spine: She continues to have an exam consistent with a left L5 radiculopathy Labs to be reviewed None Imaging to be reviewed I be reviewed her his recent lumbar spine MRI which reveals a far left-sided disc at L5-S1 with foraminal stenosis Urine Drug Screen confirmations reviewed None Assessment and Plan: ASSESSMENT Encounter Diagnosis Name Primary? Thoracic or lumbosacral neuritis or radiculitis, unspecified DISCUSSION This is a 49 y.o. female who presents with continued complaint of left Pain for about 6 months now. She also has low back pain which is much less than the left leg pain. She had a left transforaminal epidural steroid injection on 2013. She had immediate And complete left leg pain relief the time of the procedure, but unfortunately no long-term pain relief. We discussed treatment options once again today. She is currently at 900 mg of gabapentin per day. This helps her sleep but makes too groggy to take it during the day. I offer to repeat the lumbar spine epidural steroid injection and she declined. She opted for a spine surgery consultation which I ordered today. I once again encouraged a home exercise program. She'll try to increase the gabapentin, but do this just at night. TREATMENT PLAN After a thorough review of the history and physical examination, Ms. Lerma and I discussed the following options in detail: Recommended Diagnostic & Therapeutic modalities: ?? Physical therapy/exercise: Continue your home exercise program ?? Diagnostic testing/Lab work: I reviewed her lumbar spine MRI ?? Interventional procedures: I offered a repeat lumbar epidural steroid injection versus a spine surgery consultation. She opted for the spine surgery consultation. ?? Medication(s): Try to increase the gabapentin at night , but avoid taking too much where it makesyou groggy. ?? Referral(s): Spine surgery for an evaluation Functional goals with the current and future treatment: 1) To be able to complete activities of daily living - Achieving 2) To be able to be active with friends and family - Achieving 3) To be able to take care of her home - Achieving 4) To be able to complete home exercises - Achieving 5) To be able to work - Achieving Follow up: PRN Ms. Lerma and I reviewed all of the above recommendations using anatomical models. The patient understands the risks, benefits, and indications of these options. The patient will think about her options. Rin may also discuss these recommendations with LOURDES FARLEY MD so that she can come to the best decision in terms of her treatment options. MARK VALENTIN DO, MPH ABPMR-subspecialty board certification in Pain Medicine Attending Physician-Pain Management documented in this encounter Plan of Treatment Scheduled Referrals Name Type Priority Associated Diagnoses Order S chedule Referral to Outpatient Referral Routine Thoracic or Ordered: Neurosurgery lumbosacral neuritis 014 or radiculitis, unspecified documented as of this encounter Visit Diagnoses Diagnosis Thoracic or lumbosacral neuritis or radi culitis, unspecified documented in this encounter Care Teams Executive Asst Relationship Specialty Start Date End Date Lourdes Farley MD PCP - General 05/08/13 [address] [place] [address] documented as of this encounter
--- OUTSIDE RECORDS SUMMARY | 2022-01-06 00:19 | XMS_ITS | Encounter Summary ---
:1965 Author Organization [facility] [place] [address] Care Team Providers Name Role Phone Lourdes Smith MD Primary Care Provider Reason for Visit Reason Comments Follow-up Encounter Details Date Type Department Care Team Description 05/08/2013 [place] [facility] [place]aki Hutchison Anemia (Primary Dx) [facility] [place] [address] [facility] [phone] [facility] [place], [place] [address] Social History Tobacco Use Types Packs/Day Years Used Date Former Smoker Sex Assigned at Date Recorded Not on file documented as of this encounter Last Filed Vital Signs Vital Sign Reading Time Taken Comments Blood Pressure 120/63 05/08/2013 3:17 PM EST Pulse 57 05/08/2013 3:17 PM EST Temperature - - Respiratory Rate - - Oxygen Saturation - - Inhaled Oxygen Concentration - - Weight 61.2 kg (135 lb) 05/08/2013 3:17 PM EST Height 165.1 cm (5' 5) 05/08/2013 3:17 PM EST Body Mass Index 22.47 05/08/2013 3:17 PM EST documented in this encounter Progress Notes Flaquito Mo MD - 06/03/2013 5:09 PM EST The patient was seen and examined by Dr. Hutchison. I have reviewed the history, physical, assessment and plan, and I agree with them as documented. Maki Hutchison H - 05/08/2013 3:23 PM EST [facility] Section of Gastroenterology and Hepatology Outpatient Follow Up Note Reason for Visit: focal small bowel enteritis s/p segmental resection, hx of iron deficiency anemia recently worsened, question of Crohn's enteritis Referred by Self, Dr. Mccormick Mrs. 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 GI PROBLEM LIST #Crohn's enteritis: -hx of [...] MRE: unremarkable, post resection, no IBD/mesenteric ischemia INTERVAL HISTORY: Rin Lerma present today for follow up of her recent MRE/lab work. As well to discuss her sx post segmental small bowel resection. She denies any weight loss, reports overall improvement in energy. She denies diarrhea, melena, hematochezia, oral ulcers, rash. She continues to have intermittent dyspepsia like sx. Otherwise tolerating po. 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 We discussed given absent sx, normal MRE of small bowel, labs responding to oral iron supplement, would defer treatment of nonspecific enteritis. But will re- evaluate with repeat colonoscopy to evaluate TI/anastamosis with biopsies to ensure inactive disease. If persistent anemia, active disease endoscopically would prompt me to treat her. RECOMMENDATIONS: -colonoscopy with TI intubation, eval anastamotic site (30 cm from TI), obtain bx -ensure daily BM: Miralax 17 g QHS, encouraged hydration, daily toilet training -avoid NSAIDs -continue PPI QD, oral iron supplement -labs today Recommend: repeat CBC, iron studies to ensure adequate repletion. If persistent upper GI sx, will consider testing for SIBO as well given recent surgery, abx administration. Mrs. Lerma has my contact information to call me with any questions. She will follow up with me in clinic. Maki Hutchison MD Gastroenterology fellow [id number] documented in this encounter Plan of Treatment Not on filedocumented as of this encounter Procedures Procedure Name Priority Date/Time Associated Diagnosis Comme nts DIFFERENTIAL, Routine 05/08/2013 4:18 PM Results for this AUTOMATED EST procedure are i n the results section. IRON AND TIBC Routine 05/08/2013 4:18 PM Anemia Results for this EST procedure are i n the results section. CBC (WITH DIFF) Routine 05/08/2013 4:18 PM Anemia Result s for this EST procedure are i n the results section. FERRITIN Routine 05/08/2013 4:18 PM Anemia Results f or this EST procedure are i n the results section. documented in this encounter Results Differential, Automated (05/08/2013 4:18 PM EST) P athologist Signature Neutrophils % 49.5 34.0 - CERNER 71.0 % MILLENNIUM Neutr Abs (ANC) 3.03 1.50 - CERNER 6.30 MILLENNIUM x10(3)/mcL Lymphocytes % 39.2 19.0 - CERNER 53.0 % MILLENNIUM Lymphocytes Abs 2.4 1.0 - 3.6 CERNER x10(3)/mcL MILLENNIUM Monocytes % 6.7 4.0 - 13.0 CERNER % MILLENNIUM Monocyte Abs 0.4 0.2 - 1.0 CERNER x10(3)/mcL MILLENNIUM Eosinophils % 3.9 0.0 - 7.0 CERNER % MILLENNIUM Eosinophils Abs 0.2 0.0 - 0.5 CERNER x10(3)/mcL MILLENNIUM Basophils % 0.5 0.0 - 2.0 CERNER % MILLENNIUM Basophils Abs 0.0 0.0 - 0.2 CERNER x10(3)/mcL MILLENNIUM Immature Gran % 0.20 0.00 - CERNER 0.66 % MILLENNIUM Comment: [...] Location / / Volume Laterality Blood specimen 05/08/2013 4:18 PM 013 4:28 (specimen) EST PM EST L Kenny Mo MD HEMATOLOGY ORDERABLES Performing Organization Address City/State/ZIP Code Phon e Number [facility] [place] [address] CERNER MILLENNIUM (ABNORMAL) Ferritin (05/08/2013 4:18 PM EST) athologist Signature Ferritin 11 (L) 15 - 150 CERNER ng/mL MILLENNIUM Comment: Pediatric reference ranges not verified at [facility] [place] interpret with caution. Reference ranges for females greater param n 50 years of age approach values for men, i.e., 30-400 ng/mL. Specimen Anatomical Collection Method Collection Time Receive d Time (Source) Location / / Volume Laterality Blood specimen 05/08/2013 4:18 PM 013 4:28 (specimen) EST PM EST Resulting Agency Comment Spec In Lab L Kenny Mo MD CHEMISTRY ORDERABLES Performing Organization Address City/State/ZIP Code Phon e Number [address] CERNER MILLENNIUM (ABNORMAL) Iron and TIBC (05/08/2013 4:18 PM EST) athologist Signature Iron 67 30 - 150 CERNER mcg/dL MILLENNIUM TIBC 425 250 - 450 CERNER mcg/dL MILLENNIUM Iron Saturation 16 (L) 20 - 50 % CERNER MILLENNIUM Specimen Anatomical Collection Method Collection Time Receive d Time (Source) Location / / Volume Laterality Blood specimen 05/08/2013 4:18 PM 013 4:28 (specimen) EST PM EST Resulting Agency Comment Spec In Lab L Kenny Mo MD CHEMISTRY ORDERABLES Performing Organization Address City/State/[place] [address] CERNER MILLENNIUM (ABNORMAL) CBC (with Diff) (05/08/2013 4:18 PM EST) athologist Signature WBC 6.1 4.0 - 10.0 CERNER x10(3)/mcL MILLENNIUM RBC 4.42 3.93 - CERNER 5.22 MILLENNIUM x10(6)/mcL Hemoglobin 11.6 11.2 - CERNER 15.7 gm/dL MILLENNIUM Hematocrit 36.6 34.0 - CERNER 45.0 % MILLENNIUM MCV 82.8 79.0 - CERNER 94.0 fL MILLENNIUM MCH 26.2 (L) 26.6 - CERNER 32.2 pg MILLENNIUM MCHC 31.7 (L) 32.0 - CERNER 36.5 gm/dL MILLENNIUM Platelets 196 145 - 370 CERNER x10(3)/mcL MILLENNIUM RDWSD 46.3 (H) 35.0 - CERNER 46.0 fL MILLENNIUM RDWCV 15.4 (H) 10.9 - CERNER 14.4 % MILLENNIUM MPV 10.3 9.0 - 12.0 CERNER fL MILLENNIUM Specimen Anatomical Collection Method Collection Time Receive d Time (Source) Location / / Volume Laterality Blood specimen 05/08/2013 4:18 PM 013 4:28 (specimen) EST PM EST Resulting Agency Comment Spec In Lab L Kenny Mo MD HEMATOLOGY ORDERABLES Performing Organization Address City/State/[place] [address] [facility] documented in this encounter Visit Diagnoses Diagnosis Anemia - Primary Anemia, unspecified documented in this encounter Care Teams Sugar Cane Planter Relationship Specialty Start Date End Date Lourdes Smith MD PCP - General 05/08/13 [address] [place] [address] documented as of this encounter
--- OUTSIDE RECORDS SUMMARY | 2022-01-06 00:20 | XMS_ITS | Encounter Summary ---
:1965 Author Organization [facility] [place] [address] Care Team Providers Name Role Phone None Primary Care Provider Unavailable Encounter Details Date Type Department Care Team Description 04/17/2013 Hospital Encounter MRI at [facility] [place] Enteritis [facility] Flaquito Mo MD [facility] [place] [address] [place] [address] Social History Tobacco Use Types Packs/Day Years Used Date Former Smoker Sex Assigned at Date Recorded Not on file documented as of this encounter Last Filed Vital Signs Vital Sign Reading Time Taken Comments Blood Pressure - - Pulse - - Temperature - - Respiratory Rate - - Oxygen Saturation - - Inhaled Oxygen Concentration - - Weight 60.8 kg (134 lb) 04/17/2013 6:52 AM EDT Height - - Body Mass Index 22.3 04/15/2013 8:12 AM EDT documented in this encounter Medications at Time of [...] tablets nightly documented as of this encounter Miscellaneous Notes Miscellaneous - Provider, Scanning - 05/13/2013 1:21 PM EST documented in this encounter Plan of Treatment Not on filedocumented as of this encounter Procedures Procedure Name Priority Date/Time Associated Diagnosis Comme nts MRI ENTEROGRAPHY Routine 04/17/2013 6:30 Other and unspecified Results for this WITH/WO CONTRAST PM EDT noninfectious procedure are in gastroenteritis and the resu lts colitis section. documented in this encounter Results MRI enterography with/WO contrast (04/17/2013 6:30 PM EDT) Anatomical Region Laterality Modality Abdomen Magnetic Resonance Specimen (Source) Anatomical Collection Method Collection Time Re ceived Time Location / / Volume Laterality 04/17/2013 6:30 PM EDT Narrative 04/18/2013 11:09 AM EDT Examination MR Enterography With and Without Contras t Clinical History Recent weight loss/chronic constipation/ chronic iron def anemia S/P recent small bowel resection with fo justin ulceratiions Evaluate for ??Crohn's, as well as comme nt on vasculature (as ischemia may be playing role) Comparison CT of the abdomen and pelvis 02/01/2013. Technique Routine multiplanar MRI of the abdomen a nd pelvis per enterography protocol was performed before and after administratio n of 13 mL of Magnevist IV contrast without complication. Findings The patient is post segmental small manpreet l resection. There is no evidence of transmural inflammation, bowel wall thic kening, or hyperemia. The mesenteric vasculature is unremarkable and there is no evidence of mesenteric ischemia. Normal peristalsis is seen throughout th e small bowel. Incidental note is made of a low lying cecum. Of note, the termi nal ileum is normal. ?? The visualized portion of the liver is n otable only for a 5 mm T2 hyperintense lesion at the dome (coronal series 5, im age 22) likely representing a benign hepatic cyst. ??No intra or extrahepatic biliary ductal dilatation. The kidneys, adrenals, spleen, and pancreas are unrem arkable. No pleural effusions in the visualized portion the lungs. Mild S-sha ped curvature of the thoracolumbar spine. Bone marrow signal is appropriate for age with no aggressive osseous lesions. Impression Status post small bowel resection with n o evidence of inflammatory bowel disease or mesenteric ischemia. Film and interpretation reviewed by the attending Procedure Note Enrique Cain MD - 04/18/2013Form atting of this note might be different from the original. Examination MR Enterography With and Without Contras t Clinical History Recent weight loss/chronic constipation/ chronic iron def anemia S/P recent small bowel resection with fo justin ulceratiions Evaluate for Crohn's, as well as comment on vasculature (as ischemia may be playing role) Comparison CT of the abdomen and pelvis 02/01/2013. Technique Routine multiplanar MRI of the abdomen a nd pelvis per enterography protocol was performed before and after administratio n of 13 mL of Magnevist IV contrast without complication. Findings The patient is post segmental small manpreet l resection. There is no evidence of transmural inflammation, bowel wall thic kening, or hyperemia. The mesenteric vasculature is unremarkable and there is no evidence of mesenteric ischemia. Normal peristalsis is seen throughout th e small bowel. Incidental note is made of a low lying cecum. Of note, the termi nal ileum is normal. The visualized portion of the liver is n otable only for a 5 mm T2 hyperintense lesion at the dome (coronal series 5, im age 22) likely representing a benign hepatic cyst. No intra or extrahepatic b iliary ductal dilatation. The kidneys, adrenals, spleen, and pancreas are unrem arkable. No pleural effusions in the visualized portion the lungs. Mild S-sha ped curvature of the thoracolumbar spine. Bone marrow signal is appropriate for age with no aggressive osseous lesions. Impression Status post small bowel resection with n o evidence of inflammatory bowel disease or mesenteric ischemia. Film and interpretation reviewed by the attending L Kenny Mo MD IM MRI ORDERABLES documented in this encounter Visit Diagnoses Diagnosis Enteritis Other and unspecified noninfectious miguel ángel roenteritis and colitis documented in this encounter Administered Medications Inactive Administered Medications - up to 3 most recent administrations Medication Order MAR Action Action Date Dose Rate Site gadopentetate dimeglumine Given 04/17/2013 6:12 PM EDT 13 mLs (MAGNEVIST) injection 12 mL 12 mL (0.2 mL/kg/dose ? 60.8 kg), Intravenous, ONCE PRN, 1 dose, Starting on Mon04/17/13 at 0653, Until Mon04/17/13 at 1812, Per Protocol, Routine documented in this encounter Care Teams Automatic Riveting Machine Operator Relationship Specialty Start Date End Date None PCP - General 04/15/13 05/07/13 None documented as of this encounter
--- OUTSIDE RECORDS SUMMARY | 2022-01-06 00:20 | XMS_ITS | Encounter Summary ---
:1965 Author Organization [facility] Address [address] [place] [address] Care Team Providers Name Role Phone Unknown, Provider Primary Care Provider Lourdes Farley MD Primary Care Provider Encounter Details Date Type Department Care Team Description 12/25/2012 Results Only [facility] [place] Timmy Tolliver , Laboratory Services - [address] EBONY ERIC [address] [place], [place] [id number] [place] [id number] [phone] Social History Tobacco Use Types Packs/Day Years Used Date Never Assessed Sex Assigned at Date Recorded Not on file documented as of this encounter Plan of Treatment Not on filedocumented as of this encounter Procedures Procedure Name Priority Date/Time Associated Diagnosis Comme [facility] SURGICAL PATHOLOGY Routine 12/25/2012 13:35 Resul ts for this EDT procedure are i n the results section. documented in this encounter Results SURGICAL PATHOLOGY (12/25/2012 13:35 EDT) Pathology Report: SURGICAL PATHOLOGY REPORT KIRTI EMANUEL Reports generated via electronic interface contain alina ginal data; LAB however they are lacking the format of the original re port. Caution should be taken when reading/interpreting unfo rmatted reports. Name: ? RIN CORBIN ? Accession #: ? [id number] ? : ? 1965 (Age: 47) ??F ? Collect Date: ? 12/25/2012 ? Location: ? [facility] ? Receive Date: ? 013 ? Provider: TIMMY TOLLIVER DO Copy to: LOURDES FARLEY MD ? Final Pathologic Diagnosis: A. RECTUM, POLYP, BIOPSY: - ??Fragments of hyperplastic polyp. B. STOMACH, ANTRUM, BIOPSY: - ??Fragments of antral and transitional type mu cosa with reactive (chemical) gastropathy. - ??No intestinal metaplasia or dysplasia identified. - ??No evidence of Helicobacter pylori on H&E. C. ESOPHAGUS, DISTAL, BIOPSY: - ??Squamous mucosa with mild reactive change. - ??No glandular epithelium present. Document reviewed and electronically signed by: ANABELL MONTEMAYOR MD for STAFF PATHOLOGIST Report ??Date: 12/27/2012 14:27 By the signature above, the attending physician certif ies that he/she has personally conducted a gross and/or microscopic examin ation of the described specimens and rendered or confirmed the above diagnosi s. Specimen(s) Received: A. ?Rectal polyp (colo) B. ? Bx antrum (EGD) C. ?Bx distal esophagus (EGD) Clinical History: Anemia, abdominal pain Gross Description: ? Received in formalin labelled with proper patient identification (initials H, S) and 1-rectal polyp are two elmore-pink irregular soft tissue fragments averaging 0.3 x 0.2 x 0.2 cm. ??The specimen is entire ly submitted as A1. ? Received in formalin labelled with proper patient identification (initials H, S) and 2-bx antrum are two elmore-pink irregular sof t tissue fragments measuring 0.3 x 0.3 x 0.2 cm and 0.3 x 0.3 x 0.3 cm. ??The specimen is entirely submitted as B1. ? Received in formalin labelled with proper patient identification (initials H, S) and 3-bx distal esoph marcos is a pink-white irregular soft tissue fragment measuring 0.5 x 0.3 x 0.2 cm. ??The specimen is entire ly submitted as C1Obinna Dueñas 12/26/2012 02:43 PM End of Report Specimen Performing Organization Address City/State/ZIP Code Phon e Number [facility] [address] [place] [address] [facility] [address] [place] [address] documented in this encounter Visit Diagnoses Not on filedocumented in this encounter Care Teams Bilingual Recruiter Relationship Specialty Start Date End Date Unknown, Provider, PCP - General 11/16/10 12/25/12 Lourdes Farley MD PCP - General 12/26/[address] [place] [address] [place], [place] [id number] documented as of this encounter
--- OUTSIDE RECORDS SUMMARY | 2022-01-06 00:20 | XMS_ITS | Encounter Summary ---
:1965 Author Organization [facility] [address] Care Team Providers Name Role Phone None Primary Care Provider Unavailable Reason for Visit Reason Comments GI Problem Encounter Details Date Type Department Care Team Description 04/15/2013 Office [place] [facility] [place]ison, Enteritis (Primary [facility] Sade forde MD Dx) [place] [address] [facility] [phone] CENTER [place] [address] Social History Tobacco Use Types Packs/Day Years Used Date Former Smoker Sex Assigned at Date Recorded Not on file documented as of this encounter Last Filed Vital Signs Vital Sign Reading Time Taken Comments Blood Pressure 124/60 04/15/2013 8:12 AM EDT Pulse 59 04/15/2013 8:12 AM EDT Temperature - - Respiratory Rate - - Oxygen Saturation - - Inhaled Oxygen Concentration - - Weight 60.8 kg (134 lb) 04/15/2013 8:12 AM EDT Height 165.1 cm (5' 5) 04/15/2013 8:12 AM EDT Body Mass Index 22.3 04/15/2013 8:12 AM EDT documented in this encounter Progress Notes Flaquito Mo MD - 04/16/2013 12:10 PM EDT ATTENDING ADDENDUM I interviewed and examined Rin Lerma with Dr. Hutchison on rounds. I have discussed the case withher and confirm the history and eid physical findings outlined in this note. The assessment and planwere formulated in discussion with me at the time of this encounter, and I agree with them as documented. Maki Hutchison H - 04/15/2013 8:38 AM EDT [facility] Section of Gastroenterology and Hepatology Outpatient Consultation Reason for Visit: focal small bowel enteritis s/p segmental resection, hx of iron deficiency anemia recently worsened, question of Crohn's enteritis Referred by Lourdes Smith Dr. Danielson History of Present Illness: Mrs. Rin Lerma is a 48 y.o. 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 Mccormick) unrevealing, CT scan a/p with small bowel irregular thickening, s/p 01/29 segmental small bowel resection/LN bx without evidence of malignancy, focal ulcerations (see below for detailed reports). Rin reports suffering from chronic constipation where she moves her bowels q1-2 week since young adulthood. Never took laxatives. Poor diet, low fiber, reports good hydration. She denies hx of melena, hematochezia. Reports at times will have painless blood on wiping when her hemorrhoids act up. In addition has had over past year sx of dyspepsia which entail midepigastric burning sensation, nausea, bloating, distension, relieved post defecation. Denies any NSAID use. Has noted current iron supplementation has made her UGI sx worse. She has had a rough year emotionally as well, where her son moved out in 09/29, pet rabbit and dog . She is tearful. Reports insomnia, poor appetite. Does not like to eat alone so will wait for her and eat once a day supper. Admits to post prandial discomfort. In addition to all of her emotional obstacles, she began noting worsening fatigue, light headedness.10 lbs weigh loss over 3-4 months. Presented to her PCP, where CBC was noted to have anemia Hb 8.7 (baseline 10), MCV 78, normal diff, PLT/WBC WNL. LFT's WNL. Iron level low 19, TIBC normal, iron transsat low at 4. She denies any gross bleeding. 12/29 EGD/colo w/Dr. Mccormick, per patient WNL, have path reports in [facility]: mild gastropathy, hyperplastic rectal polyp. 02/01/13 CT scan for weight loss, abd pain-->small bowel in pelvis posterior to urinary bladder noted to be thickened/irregular, dilation. Underwent surgery, liver normal, ran the small bowel through port site area in question noted-no active inflammation noted, some palpable mesenteric lymph nodes noted, as well as ascending colon lymph nodes were palpable. Dr. Mccormick proceeded to take lymph node bx, wedge resection with 6 cm marginsof small bowel 30 cm proximal to the TI. Pathology resulted: grossly: ulcerations, loss of intestinal folds, mild cobblestoning, creeping fat onto serosa, dilated piece of small bowel, micro: punched out well demarcated ulcers involving mucosa and superficial submucosa, surrounding area hyperplasia, focal vague ischemic pattern of injury, marked fibrosis.collagen bands, no chronic injury, no infectious organisms. Denies oral ulcers, eye pain, rash, arthralgias. Admits to chills, denies fevers. Additionally she was recently treated in February with Amoxicillin for a sinus infection. Review of Systems: Constitutional: admits to weight loss HEENT: no visual changes, no URI symptoms Cardio: no chest pain Resp: no cough, no SOB Hem/Lymph: no new lumps or bumps on body GI: see HPI : no dysuria Integumentary: no new rashes Musculoskeletal: no new joint pains Neuro: generalized weakness in extremities All other systems negative except as above in HPI PMH: Iron deficiency anemia-childhood-->iron supplements (causing GI sx) Past surgical: -total hysterectomy (20's)metrorrhagia -CC[facility] -tubal ligation, oopherectomy (ovarian cyst) Social History: -Quit January-1ppd x 20 years -Denies ETOH -Denies drugs, marijuanna -Lives in [place], [place] Family History: -Adopted-unclear family hx -2 boys healthy Current Outpatient Prescriptions Medication Sig Dispense Refill ??? docusate sodium (COLACE) 100 mg capsule Take 100 mg by mouth daily. ??? estradiol (ESTRACE) 2 mg tablet Take 0.5 mg by mouth daily. ??? gabapentin (NEURONTIN) 100 mg capsule Take 100 mg by mouth nightly. 1-2 tablets nightly ??? polyethylene glycol (MIRALAX) 17 gram/dose powder Take 17 g by mouth as needed. Allergies Allergen Reactions ??? Sulfa (Sulfonamide Antibiotics) CIS - Urticaria Physical Examination: BP 124/60 Pulse 59 Ht 165.1 cm (5' 5) Wt 60.782 kg (134 lb) BMI 22.30 kg/m2 General: Pleasant, cooperative, NAD, WN/WD HEENT: NC/AT, [...] rash or lesion Neuro: AAOx3, Grossly non-focal. Additional Testing: Reviewed available labs, imaging and endoscopy results in [facility] as well as Scan Docs tab. Labs: No results found for this basename: WBC, HGB, HCT, MCV, PLATELET Chemistry No results found for this basename: NA, K, CL, CO2, BUN, CREATININE, GLU No results found for this basename: CALCIUM, ALKPHOS, AST, ALT, BILITOT No results found for this basename: ALT, AST, GGT, ALKPHOS, BILITOT LFT's, TSH, B12 WNL (see scanned documents) IMPRESSION: Mrs. Rin Lerma is a 48 y.o. 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 Mccormick) unrevealing, CT scan a/p with small bowel irregular thickening, s/p 01/29 segmental small bowel resection 30 cm from TI/LN bx without evidence of malignancy, focal ulcerations mucosa-superficial sub mucosa/vague ischemic injury, no chronicity, gross path mild cobblestoning, loss of intestinal folds, creeping fat on serosa. Given clinical scenario, differential for her segmental focal enteritis includes IBD (Crohn's) vs cryptogenic multi ulcerous stenosing enteritis (CMUSE) vs toxin/NSAID (although patient denies ANY NSAID use). Less likely given lack of diarrhea autoimmune enteritis, infectious enteritis. Interestingly she does not have the classic Crohn's path findings, given her ulcerations were mucosa/submucosa, no chronicity, no granulomas. But grossly mentions of creeping fat, cobblestoning more indicative of Crohn's. Given patient's current symptoms of constipation, functional dyspepsia like sx, will optimize conservative treatment. Her Hb has responded to oral iron supplementation post surgery. There is no need totreat with immunosuppressants at this time for presumptive Crohn's as patient w/o evidence of activedisease based on sx/bloodwork. She is not endorsing sx of obstruction (denies vomiting, regurgitation hx). RECOMMENDATIONS: -obtain colonoscopy reports, obtain pathology slides of surgical specimen (will notify our path department for re-analysis for chronicity/granuloma) -ESR/CRP, TTG -Obtain MRE to evaluate for active small bowel involvement (will defer video capsule given recent surgery, concern for stenotic disease, will evaluate with imaging initially-will consider patency capsule if needed, but will start with MRE) -Pending above will discuss treatment/managment -ensure daily BM: Miralax 17 g QHS, encouraged hydration, daily toilet training -avoid NSAIDs Recommend: repeat CBC, iron studies to ensure adequate repletion. If persistent upper GI sx, will consider testing for SIBO given recent surgery, abx administration. Mrs. Lerma has my contact information to call me with any questions. She will follow up with me in clinic. Patient was seen and discussed with Dr. Mo. Will fax a copy of this consult to Luis Orantes, please contact me to discuss any questions/concerns re: care of this patient. Maki Hutchison [place] [address] P: [phone] F: [phone] CC None None Lourdes Smith MD [address] [place] [address] documented in this encounter Plan of Treatment Not on filedocumented as of this encounter Procedures Procedure Name Priority Date/Time Associated Comments Diagnosis TISSUE Routine 04/15/2013 10:50 Enteritis Results for this TRANSGLUTAMINASE, IGA AM EDT proced ure are in the results section. SEDIMENTATION RATE Routine 04/15/2013 10:50 Enteritis Resul ts for this AM EDT procedure are i n the results section. CRP, CARDIAC RISK (HS Routine 04/15/2013 10:50 Enteritis Re sults for this CRP) AM EDT procedure are i n the results section. documented in this encounter Results Tissue transglutaminase, IgA (04/15/2013 10:50 AM EDT) athologist Signature TTG IgA Ab <4.0 <=3.9 u/ml [facility] Comment: Result Interpretation: Negative: ?<4 U/mL Weak Positive: ??4-10 U/mL Positive: ?>10 U/mL Specimen Anatomical Collection Method Collection Time Receive d Time (Source) Location / / Volume Laterality Blood specimen 04/15/2013 10:50 3 2:24 (specimen) AM EDT PM EDT Resulting Agency Comment Spec In Lab L Kenny Mo MD IMMUNOLOGY ORDERABLES Performing Organization Address City/State/ZIP Code Phon e Number [place] [phone] [facility] Sedimentation rate (04/15/2013 10:50 AM EDT) P athologist Signature Sed Rate 7 0 - 20 CERNER mm/hr [facility] Specimen Anatomical Collection Method Collection Time Receive d Time (Source) Location / / Volume Laterality Blood specimen 04/15/2013 10:50 3 (specimen) AM EDT 11:05 AM EDT Resulting Agency Comment Spec In Lab L Kenny Mo MD HEMATOLOGY ORDERABLES Performing Organization Address City/[facility]/[place] [address] [facility] High Sensitivity CRP (04/15/2013 10:50 AM EDT) athologist Signature CRP High Sens 0.4 mg/L [facility] Comment: Interpretations: 1) For accurate cardiac risk [...] Cardiovascular Disease. ??Circulatio n 2003; 107:499-511 2. Chema PM. ??Clinical applications of C-reactive protein for cardiovascular disease detection and prevention. ??Circ ulation 2003; 107:363-369 Specimen Anatomical Collection Method Collection Time Receive d Time (Source) Location / / Volume Laterality Blood specimen 04/15/2013 10:50 3 (specimen) AM EDT 11:05 AM EDT Resulting Agency Comment Spec In Lab Flaquito Mo MD CHEMISTRY ORDERABLES Performing Organization Address City/[facility]/[place] [address] CERNER [employer] [facility] documented in this encounter Visit Diagnoses Diagnosis Enteritis - Primary Other and unspecified noninfectious miguel ángel roenteritis and colitis documented in this encounter Care Teams Machine Heel Sprayer Relationship Specialty Start Date End Date None PCP - General 04/15/13 05/07/13 None documented as of this encounter
--- OUTSIDE RECORDS SUMMARY | 2022-01-06 00:20 | XMS_ITS | Encounter Summary ---
:1965 Author Organization [facility] [place] [address] Care Team Providers Name Role Phone Lourdes Smith MD Primary Care Provider Encounter Details Date Type Department Care Team Description 02/01/2013 Orders Only [place] [facility] [place] Dior, [facility] [place] [address] [facility] [phone] GASTROENTEROLOGY DEPT [place], [place] [address] (Wo rk) Social History Tobacco Use Types Packs/Day Years Used Date Never Assessed Sex Assigned at Date Recorded Not on file documented as of this encounter Plan of Treatment Not on filedocumented as of this encounter Procedures Procedure Name Priority Date/Time Associated Diagnosis Comme nts FILM LIBRARY Routine 02/01/2013 1:40 PM Results f or this STORAGE ONLY CT EDT procedure ar e in ABDOMEN AND PELVIS the resul ts section. documented in this encounter Results Film Library- Storage only CT abdomen & pelvis (02/01/2013 1:40 PM EDT) Specimen (Source) Anatomical Collection Method Collection Time Re ceived Time Location / / Volume Laterality 02/01/2013 1:40 PM EDT Narrative RAD - 02/12/2014 4:47 PM EDT This is a non-reportable exam. Procedure Note Guru Lewis - 02/12/2014Formatti ng of this note might be different from the original. This is a non-reportable exam. Enrique Dior MD G FILM LIBRARY ORDERABLES Performing Organization Address City/State/ZIP Code Phon e Number RAD RAD [address] [facility] [place] [address] documented in this encounter Visit Diagnoses Not on filedocumented in this encounter Care Teams Car Carder Relationship Specialty Start Date End Date Lourdes Smith MD PCP - General 05/11/10 04/14/13 [address] [place] [address] documented as of this encounter
--- OUTSIDE RECORDS SUMMARY | 2022-01-06 00:20 | XMS_ITS | Encounter Summary ---
:1965 Author Organization [facility] Address [address] [place] [address] Care Team Providers Name Role Phone Lourdes Farley MD Primary Care Provider Encounter Details Date Type Department Care Team Description 02/05/2013 Results Only [facility] Ken Tolliver , Laboratory Services - [address] EBONY ERIC [address] [place] [address] [place], [place] [address] [phone] Social History Tobacco Use Types Packs/Day Years Used Date Never Assessed Sex Assigned at Date Recorded Not on file documented as of this encounter Plan of Treatment Not on filedocumented as of this encounter Procedures Procedure Name Priority Date/Time Associated Diagnosis Comme [facility] SURGICAL PATHOLOGY Routine 02/05/2013 16:28 Resul ts for this EDT procedure are i n the results section. documented in this encounter Results SURGICAL PATHOLOGY (02/05/2013 16:28 EDT) Pathology Report: SURGICAL PATHOLOGY REPORT KIRTI EMANUEL Reports generated via electronic interface contain alina ginal data; LAB however they are lacking the format of the original re port. Caution should be taken when reading/interpreting unfo rmatted reports. Name: ? RIN CORBIN ? Accession #: ? [id number] ? : ? 1965 (Age: 47) ??F ? Collect Date: ? 02/05/2013 ? Location: ? [facility] ? Receive Date: ? 013 ? Provider: KEN TOLLIVER DO Copy to: LOURDES FARLEY MD ? Final Pathologic Diagnosis: SMALL BOWEL, 30 CM FROM CECUM, PARTIAL RESECTION: - ??Portion of small bowel with: ? - ??Multiple, discrete ulcers limited to the mu cosa and superficial submucosa. ? - ??Associated submuc zac fibrosis interdigitating with muscularis propria. ? - ??Focal pancreatic heterotopia. ? - ??Three reactive lymph nodes. ? - ??Negative for malignancy. ? - ??Negative for infectious organisms. ? - ??See comment. Comment: On gross examination and histologic review this resect ion specimen is significant for several, well demarcated punched-out ulcers involving the mucosa and superficial submu cosa. ??Directly adjacent to these ulcers are areas of hyperplasia, occasional pyloric metap lasia and focal vague ischemic pattern mucosal njury (A4). ??In addition, sever al submucosa foci have marked fibrosis with collagen bundels running perpendicular to and int erdigitating with the muscularis propria. ??The small bowel, away from the u lcers, is negative for activity and shows no evidence of chronic injury . No granulomas or infectious organisms are identified. ??The resectio n specimen is negative for malignancy. Overall, these histologic fe atures are most suggestive of an early diaphragmatic disease which is nearly path ognomonic for chronic NSAID related injury. ??Other direct mucosal toxins (e.g. corticosteroids, potassium chloride) may also cause a similar histomorphologic pattern. ??If the pat ient is not taking any of the drugs known to cause this ty pe of injury then cryptogenic multifocal ulcerating stenosing enteritis (CMUSE) would be a d iagnostic consideration. ??Heterotopic pancreas is incidentally tamara ntified (A14). It is not directly associated with an area of ulceration. Dr. Chavez 02/08/2013 11:06 AM Document reviewed and electronically signed by: NAOMIE CHAVEZ MD Report ??Date: 02/08/2013 11:20 By the signature above, the attending physician certif ies that he/she has personally conducted a gross and/or microscopic examin ation of the described specimens and rendered or confirmed the above diagnosi s. Specimen(s) Received: Small bowel Clinical History: Small bowel lesion, weight loss, anemia Intraoperative Interpretation: LYMPH NODE, SMALL BOWEL MESENTERY, 30 CM FROM CECUM, S CRAPE PREP: - Polymorphous population of lymphocytes. No jorgito dence of malignancy. Findings most consistent with reactive node. - Results communicated to Dr. Jostin galan on 02/05/2013 at 11:[address] Yeyo Vega on 02/05/2013 at 11:30 AM. Gross Description: ? Received fresh labell ed with proper patient identification (initials H, S) and small bowel is a 15.0 cm in length portion of apple wel received partially opened along the antimesente rommel aspect with two stapled resection margins. Black ink is placed along the mesenteric resection margin. T he serosa is pink and focally mildly hemorrhagic. ?The central port ion of the bowel over a length measuring roughly 6.0 cm is dilated measuring 6.5 cm in inner cir cumference. One end of the small bowel measures 4.0 cm in inner cir cumference while the opposite end measures 5.5 cm in inner circumference. ?? The central portion of the bowel con tains three mucosal ulcerative lesions which have elmore, focally hyperemic, slightly granular f lat bases. The largest lesion is most central and m easures 2.7 x 2.0 x 0.1 cm and is located 7 cm from the closest stapled resectio n margin. A second smaller ulcerative mucosal lesion measures 1.0 x 0.9 cm and is located 1.9 cm from the l argest lesion and is adjacent to the antimesenter ic aspect of the bowel. The bowel wall is thickened in this area measuring up to 0.9 cm in thickness. A th ird ulcerative lesion measures 2.0 x 1.0 cm and is located 1 cm from t he largest lesion and is 8 cm from the closest stapled mar gin. There is loss of intestinal folds in the bowel mucosa surrounding the lesio ns and creeping fat is notable on the serosa in this area. The remaining mucosa is slightly c obblestoned in the central portion but is otherwise light elmore velvety and folded. The remaini ng bowel wall of the specimen measures 0.6 cm in average thickness. There i s a central mesenteric node measuring 2.0 x 2.0 x 1.0 cm which has a ta n to elmore light brown firm cut surface. A scrape preparatio n of the nodes is performed with the intraoperative interpretation as above. In addition, a gross description of the small bowel is communicated to Dr. Jostin Tolliver. Examination of th e remaining mesenteric adipose tissue reveals two t an-red firm lymph nodes which measure 0.5 cm each in greatest dimension. ??Photographs of the specimen are taken. ? Process Control Specialist sections of the specimen are submit zakia as follows: BLOCK FLOREZ 1- ??section adjacent to stapled margin furthest away from central ulcerative lesions 2- ??section adjacent to opposite stapled margin 3-4- ??two sections of smallest ulcerative lesion from center of bowel 5-7- ??three sections of second largest ulcerative lesion from center of bowel 8-13- ??six sections of largest ulcerative lesion from center of bowel 14-16- ??three additional sections from center of manpreet l 17-18- ??two sections of tra nsition zone from dilated central portion of bowel to nondilated portion of bowel 19-24- ??The 2.0 x 2.0 x 1.0 cm large mesenteric node from which the scrape prep is performed, submitted entirely 25- ??bisected mesenteric lymph node 26- ??bisected mesenteric lymph node 27-29- ??mesenteric resection margin, en face Brendon Whitman 02/06/2013 08:20 AM End of Report Specimen Performing Organization Address City/State/ZIP Code Phon e Number [facility] [address] [place] [address] [facility] [address] [place] [address] documented in this encounter Visit Diagnoses Not on filedocumented in this encounter Care Teams Infrastructure Architect Relationship Specialty Start Date End Date Lourdes Farley MD PCP - General 12/26/[address] [place] [address] [place] [address] documented as of this encounter
--- OUTSIDE RECORDS SUMMARY | 2022-01-06 00:20 | XMS_ITS | Encounter Summary ---
:1965 [place] [address] Care Team Providers Name Role Phone None Primary Care Provider Unavailable Encounter Details Date Type Department Care Team Description 04/15/2013 Orders Only [place] [facility] [address] GASTROENTEROLOGY DEPT. [place] [address] (Wo rk) Social History Tobacco Use Types Packs/Day Years Used Date Former Smoker Sex Assigned at Date Recorded Not on file documented as of this encounter Plan of Treatment Not on filedocumented as of this encounter Visit Diagnoses Not on filedocumented in this encounter Care Teams Program Production Specialist Relationship Specialty Start Date End Date None PCP - General 04/15/13 05/07/13 None documented as of this encounter
--- OUTSIDE RECORDS SUMMARY | 2022-01-06 00:20 | XMS_ITS | Clinical Summary ---
:1965 Author Organization [facility] Address [address] [place] [address] Care Team Providers Name Role Phone Lourdes Smith MD Primary Care Provider Social History Tobacco Use Types Packs/Day Years Used Date Never Assessed Sex Assigned at Date Recorded Not on file Plan of Treatment Not on file Care Teams Healthcare Consultant Relationship Specialty Start Date End Date Lourdes Smith MD PCP - General 12/26/[address] [place] [address] [address] [place], [place] [id number]
--- OUTSIDE RECORDS SUMMARY | 2022-01-06 00:20 | XMS_ITS | Encounter Summary ---
:1965 Author Organization [facility] Address [address] [place] [address] Care Team Providers Name Role Phone Unknown, Provider Primary Care Provider Encounter Details Date Type Department Care Team Description 11/11/2010 Results Only [facility] Mary Smith MD Laboratory Services - [address] [place] [address] [address] [facility] [place] [address] [phone] Social History Tobacco Use Types Packs/Day Years Used Date Never Assessed Sex Assigned at Date Recorded Not on file documented as of this encounter Plan of Treatment Not on filedocumented as of this encounter Procedures Procedure Name Priority Date/Time Associated Diagnosis Comme nts PAP TEST- RESULT Routine 11/11/2010 0:00 EDT Resu lts for this ONLY procedure are i n the results section. documented in this encounter Results PAP TEST- RESULT ONLY (11/11/2010 0:00 EDT) Pathology Report: CYTOPATHOLOGY REPORT ? [facility] ? LAB Reports generated via electr onic interface contain original data; ? however they are lacking the format of the original report. ? Caution should be taken when reading/interpreting unformatted reports. ? Name: ? RIN CORBIN ? Accession #: ? [id number] ? : ? 1965 (Age: 45) ??F ?Collect Date: ? 11/11/2010 ? Location: ? [facility] ? Receive Date: ? 11/16/2010 ? Provider: ?DEIRDRE MAGANA MD ? Copy to: ? Specimen/Source: ? Pap Test, Vagina, ThinPrep Imaging System with manual ?? evaluation ? Last Menstrual Period: ? Treatment History: ? Hysterectomy: 1990 for heavy menses ? SPECIMEN ADEQUACY ? Satisfactory for Eval uation ? - assessment of transformati on zone component not applicable ( e.g. atrophy, ? vaginal sample, hysterectomy ) ? GENERAL CATEGORIZATION ? Negative for Intraepi thelial Lesion or Malignancy ? Document reviewed and electr onically signed by: ? Estela [place], [place]( CP) ? Report Date: ??06/02/ 2011 07:43 ? End of Report ? Specimen Performing Organization Address City/State/[facility] Code Phon e Number [facility] [address] [place] [address] SERVICES [facility] [address] [place] [address] documented in this encounter Visit Diagnoses Not on filedocumented in this encounter Care Teams Hide Shaker Relationship Specialty Start Date End Date Unknown, Provider, PCP - General 11/16/10 12/25/12 documented as of this encounter
== END ==
PROVIDERS: PCP Nurse Practitioner; Visit Provider Nurse Practitioner

== ENCOUNTER → 2022-02-03 02:06 | Outpatient (CLI) | payer BC, SELFPAY ==
--- NOTE | 2022-02-03 07:15 | DI.MAMMO_ITS ---
Exam(s) MG MAMMO DIAGNOSTIC UNI EXAM: MAMMO DIAGNOSTIC UNI CLINICAL HISTORY: 3-6 mo f/u,f/u abnl.inconclusive mammo, r92.8,z09 TECHNIQUE: Right cc and MLO mammogram images were performed according to the usual protocol includi ng computer analysis with CAD system, tomosynthesis and C-view imaging. COMPARISON: No exams were available for comparison FINDINGS: The right breast is composed of heterogeneously dense fibroglandular tissue, breast density category C.. No suspicious masses or suspicious microcalcifications are seen. The previously questioned area of a symmetric density in the superior right breast is not present on the current exam, consistent with ov erlying fibroglandular tissue. No skin thickening or abnormal axillary lymph nodes are seen. A normal appearing lymph node is again noted in the lateral right breast. IMPRESSION: BI-RADS Category 1, Negative mammogram Yearly screening mammography is recommended. Breast Density - Category C - Heterogeneously dense. A negative radiographic report should not delay biopsy if a dominant or clinically suspicious mass is present. Up to ten percent of cancers are not identified on mammography. A negative report may reinforce clinical impression. Adenosis and dense breasts may obscure an underlying neoplasm. False positive reports average 6 to 10%. Patient will receive a letter notifying them of these results.
== END ==
PROVIDERS: PCP Nurse Practitioner; Visit Provider Nurse Practitioner
DX: R92.8 Other abnormal and inconclusive findings on diagnostic imaging of breast (principal); Z09 Encounter for follow-up examination after completed treatment for conditions other than malignant neoplasm
CPT/HCPCS: 77061; 77065; G0279

== ENCOUNTER 2022-07-29 01:39 | Outpatient (CLI) | payer BC, SELFPAY ==
[2022-07-29 12:39] LABS: HCT 37.6 % (36.0-46.0); HGB 12.5 g/dL (11.2-15.7); MCH 28.9 pg (27.0-33.0); MCHC 33.2 % (32.0-36.0); MCV 87 fL (80-95); MPV 10.4 fL (8.0-11.0); Platelet Count 240 10^3/uL (130-400); RBC 4.32 10^6/uL (3.93-5.22); RDW 12.7 % (11.7-14.6); RDW-SD 40.4 fL; WBC 5.21 10^3/uL (4.4-10.8)
[2022-07-29 12:47] LABS: ALT 23 U/L (14-59); AST 20 U/L (15-37); Albumin 4.1 g/dL (3.4-5.0); Alkaline Phosphatase 108 U/L (46-116); Anion Gap 7.4 mmol/L (3-11); BUN 20 mg/dL (7-18); Bilirubin, Total 0.3 mg/dL (0.2-1.0); CO2 29.6 mmol/L (21.0-32.0); CREATININE 0.6 mg/dL (0.55-1.02); Calcium 9.6 mg/dL (8.5-10.1); Calculated LDL 147 mg/dL (<100); Chloride 103 mmol/L (98-107); Cholesterol 225 mg/dL (<200); Estimated GFR 103.98 (mL/min/1.73m2); Glucose 94 mg/dL (74-106); HDL Cholesterol 64 mg/dL (40-60); Potassium 3.7 mmol/L (3.5-5.1); Sodium 140 mmol/L (136-145); Total Protein 7.3 g/dL (6.4-8.2); Triglyceride 70 mg/dL (<150)
[2022-08-02 14:08] LABS: Hepatitis C Ab w Rflx HCV PCR Negative (Negative)
== END 2022-07-29 01:40 | disposition home or self-care (01) ==
LOC: LOS 01:39
PROVIDERS: PCP Nurse Practitioner Family; Visit Provider Nurse Practitioner Family
DX: F17.200 Nicotine dependence, unspecified, uncomplicated (principal); F41.9 Anxiety disorder, unspecified; G47.62 Sleep related leg cramps; K58.0 Irritable bowel syndrome with diarrhea; Z00.00 Encounter for general adult medical examination without abnormal findings
CPT/HCPCS: 36415; 80053; 80061; 85027; 86803

== ENCOUNTER 2022-08-18 01:50 | Outpatient (CLI) | payer BC, SELFPAY ==
--- NOTE | 2022-08-18 08:00 | DI.CTLCSR_ITS ---
Exam(s) CT CHEST LUNG CANCER SCREEN EXAM: CT CHEST LUNG CANCER SCREEN CLINICAL HISTORY: Screening for lung cancer,current smoker, f17.200 TECHNIQUE: Imaging Protocol: Axial computed tomography images with coronal and sagittal reformatted images were created and reviewed COMPARISON: CT ABD WO, ABD/PELVIS W from 02/01/2013 FINDINGS: Tracheobronchial tree: Patent where visualized. Pulmonary parenchyma: There is biapical scarring present. Paraseptal emphysematous changes are prese nt. No focal consolidating infiltrates are present. Lung Nodules: There is a 3 mm subpleural nodule along the right lateral lower lobe. Mediastinum and Dee: No dominant adenopathy or fluid collection. The esophagus is unremarkable. Thyroid gland: Unremarkable. Lymph nodes: Unremarkable. Pleura: No effusion or pneumothorax. Heart: The heart is not dilated. Coronary artery calcifications are present. No pericardial effusion . Aorta: Thoracic aorta non-dilated.Atherosclerosis is present. Upper abdomen: Status post cholecystectomy. Soft Tissues: Unremarkable. Bones: Within normal limits for the patient's age. IMPRESSION: 3 mm subpleural nodule in the right lower lobe. Lung RADS Cat 2 - Benign Appearance / Behavior: Nodules with a very low likelihood of becoming a clin ically active cancer due to size or lack of growth Lung-RADS 1.0 CATEGORIES: Category 0 - Prior chest CT exam(s) being located for comparison. Category 1 - Annual screening in 12 months. No nodules or definitely benign nodules. Category 2 - Annual screening in 12 months. Benign appearance. Nodules with low likelihood of becomin g active cancer. Category 3 - 6-month follow-up. Probably benign. Short-term follow-up suggested. Nodules with low lik elihood of becoming active cancer. Category 4A - 3-month follow-up and CT/PET if >8 mm in size. Suspicious finding. Findings which requi re additional testing. Category 4B - Findings which require additional testing and tissue sampling. Suspicious finding. Category 4X - Category 3 or 4 nodules with additional features or imaging findings that increases the suspicion of malignancy. Modifier S- Potentially clinically significant finding. (Non lung cancer) RADIATION DOSE DELIVERED: 80.85mGy.cm Total DLP 80.85mGy.cmTotal DLP DATA REPOSITORY: All CT scans at this facility are submitted to the National Radiology Data Registry (NRDR) Dose Index Registry (DIR) with the [employer] (ACR). RADIATION OPTIMIZATION: All CT scans at this facility use at least one of these dose optimization te chniques: automated exposure control; mA and/or kV adjustment per patient size (includes targeted exa ms where dose is matched to clinical indication); or iterative reconstruction.
--- NOTE | 2022-08-18 08:00 | DI.DEXA_ITS ---
Exam(s) XR DEXA BONE DENSITY W/WO MARTINA EXAM: XR DEXA BONE DENSITY W/WO MARTINA CLINICAL HISTORY: screening for osteoporosis in postmenopausal woman,z78.0 TECHNIQUE: COMPARISON: No exams were available for comparison FINDINGS: Lateral Spine Image: Unremarkable. No compression deformities identified. Left hip: Total T-Score: -2.6 Total Z-Score: -1.7 T- and Z-scores: Findings are consistent with osteoporosis. Lumbar Spine: Total T-Score: -1.7 Total Z-Score: -0.4 T- and Z-scores: Findings are consistent with osteopenia. IMPRESSION: Osteoporosis in the left hip.
== END 2022-08-18 02:10 ==
LOC: DI 01:50
PROVIDERS: PCP Nurse Practitioner Family; Visit Provider Nurse Practitioner Family
DX: Z12.2 Encounter for screening for malignant neoplasm of respiratory organs (principal); F17.210 Nicotine dependence, cigarettes, uncomplicated; M81.0 Age-related osteoporosis without current pathological fracture; J43.8 Other emphysema; R91.1 Solitary pulmonary nodule; M85.88 Other specified disorders of bone density and structure, other site; Z78.0 Asymptomatic menopausal state
CPT/HCPCS: 71271; 77080

== ENCOUNTER 2023-07-31 05:04 | Outpatient (CLI) | payer BC, SELFPAY ==
[2023-07-31 13:35] LABS: HCT 38.9 % (36.0-46.0); HGB 12.9 g/dL (11.2-15.7); MCH 28.6 pg (27.0-33.0); MCHC 33.2 % (32.0-36.0); MCV 86 fL (80-95); MPV 9.6 fL (8.0-11.0); Platelet Count 268 10^3/uL (130-400); RBC 4.51 10^6/uL (3.93-5.22); RDW 12.5 % (11.7-14.6); RDW-SD 39.5 fL
[2023-07-31 14:07] LABS: ALT 25 U/L (14-59); AST 19 U/L (15-37); Alkaline Phosphatase 117 U/L (46-116); Anion Gap 8.6 mmol/L (3-11); BUN 16 mg/dL (7-18); Bilirubin, Total 0.4 mg/dL (0.2-1.0); CO2 29.4 mmol/L (21.0-32.0); CREATININE 0.6 mg/dL (0.55-1.02); Calcium 9.6 mg/dL (8.5-10.1); Chloride 103 mmol/L (98-107); Estimated GFR 103.33 (mL/min/1.73m2); Ferritin 74 ng/mL (8-252); Glucose 97 mg/dL (74-106); Potassium 3.5 mmol/L (3.5-5.1); Sodium 141 mmol/L (136-145); Total Protein 7.6 g/dL (6.4-8.2)
[2023-07-31 14:20] LABS: Iron 68 ug/dL (50-170); Total Iron Binding Capacity 327 ug/dL (250-450); Transferrin Sat 21 % (15-50)
== END 2023-07-31 05:05 | disposition home or self-care (01) ==
LOC: LBO 05:04
PROVIDERS: PCP Nurse Practitioner Family; Visit Provider Nurse Practitioner Family
DX: Z00.00 Encounter for general adult medical examination without abnormal findings (principal); F17.210 Nicotine dependence, cigarettes, uncomplicated; E78.5 Hyperlipidemia, unspecified; F41.9 Anxiety disorder, unspecified
CPT/HCPCS: 36415; 80053; 85027; 82728; 83540; 83550

== ENCOUNTER → 2023-09-07 03:07 | Outpatient (CLI) | payer BC, SELFPAY ==
--- NOTE | 2023-09-07 06:45 | DI.CTLCSR_ITS ---
Exam(s) CT CHEST LUNG CANCER SCREEN EXAM: CT CHEST LUNG CANCER SCREEN CLINICAL HISTORY: Screening for lung cancer,CURRENT SMOKER, F17.200 TECHNIQUE: Imaging Protocol: Axial computed tomography images with coronal and sagittal reformatted images were created and reviewed COMPARISON: CT CT CHEST LUNG CANCER SCREEN from 08/18/2022 FINDINGS: Tracheobronchial tree: Patent where visualized. Pulmonary parenchyma: No consolidation or dominant measurable mass. There is scarring in the lung api cameron. There is stable pleural scarring. Mild paraseptal emphysematous changes are present. Lung Nodules: There is a stable 3 mm subpleural nodule in the right lower lobe (series 6, image 353). There is a stable 4 mm nodule in the periphery of the right middle lobe (series 6, image 253). The re is a new 3 mm nodule in the right middle lobe (series 6, image 224). Mediastinum and Dee: No dominant adenopathy or fluid collection. The esophagus is unremarkable.Calci fied lymph nodes are seen in the mediastinum consistent with prior granulomatous disease. Thyroid gland: Unremarkable. Lymph nodes: Unremarkable. Pleura: No effusion or pneumothorax. Heart: The heart is not dilated. Coronary artery calcification and/or stents are present. No pericar dial effusion. Aorta: Thoracic aorta non-dilated.Atherosclerotic calcification is present. Upper abdomen: Status post cholecystectomy. Soft Tissues: Unremarkable. Bones: Within normal limits. IMPRESSION: 1. New 3 mm nodule in the right middle lobe. 2. Other stable pulmonary nodules. Lung RADS Cat 2 - Benign Appearance / Behavior: Nodules with a very low likelihood of becoming a clin ically active cancer due to size or lack of growth Lung-RADS 1.0 CATEGORIES: Category 0 - Prior chest CT exam(s) being located for comparison. Category 1 - Annual screening in 12 months. No nodules or definitely benign nodules. Category 2 - Annual screening in 12 months. Benign appearance. Nodules with low likelihood of becomin g active cancer. Category 3 - 6-month follow-up. Probably benign. Short-term follow-up suggested. Nodules with low lik elihood of becoming active cancer. Category 4A - 3-month follow-up and CT/PET if >8 mm in size. Suspicious finding. Findings which requi re additional testing. Category 4B - Findings which require additional testing and tissue sampling. Suspicious finding. Category 4X - Category 3 or 4 nodules with additional features or imaging findings that increases the suspicion of malignancy. Modifier S- Potentially clinically significant finding. (Non lung cancer) RADIATION DOSE DELIVERED: Total DLP Total DLP DATA REPOSITORY: All CT scans at this facility are submitted to the National Radiology Data Registry (NRDR) Dose Index Registry (DIR) with the [employer] (ACR). RADIATION OPTIMIZATION: All CT scans at this facility use at least one of these dose optimization te chniques: automated exposure control; mA and/or kV adjustment per patient size (includes targeted exa ms where dose is matched to clinical indication); or iterative reconstruction.
--- NOTE | 2023-09-07 08:11 | DI.MAMMO_ITS ---
Exam(s) MAMMO SCREENING EXAM: MAMMO SCREENING CLINICAL HISTORY: screening,Z12.39 TECHNIQUE: Bilateral full field digital CC and MLO mammographic images were obtained with 3D tomosyn thesis and utilizing computer aided detection (CAD). COMPARISON: Available for comparison. FINDINGS: Masses/Architectural Distortion: None seen. Microcalcifications: No suspicious pleomorphic-type are seen. Skin Thickening/Nipple Retraction: None. IMPRESSION: 1. No significant interval change with no specific features of malignancy noted. 2. Unless there is more urgent need, screening mammography is recommended, as per [employer] guidelines. BI-RADS Category 1 - Negative Breast Density - Category C - Heterogeneously dense Breast density category C or D implies that the patient has dense breast tissue. Dense breast tissue is very common and is not abnormal but dense breast tissue can make it harder to find cancer on a ma mmogram. Also, dense breast tissue may increase their breast cancer risk. This information about the result of the mammogram report was provided to the patient to raise their awareness. Use this report when you speak with the patient about their risks for breast cancer, which includes their family hist ory. At that time, you may recommend for more screening tests (Ultrasound or MRI) as they might be us eful based on their risk. A negative radiographic report should not delay biopsy if a dominant or clinically suspicious mass is present. Up to ten percent of cancers are not identified on mammography. A negative report may reinforce clinical impression. Adenosis and dense breasts may obscure an underlying neoplasm. False positive reports average 6 to 10%. Patient will receive a letter notifying them of these results.
== END ==
PROVIDERS: PCP Nurse Practitioner Family; Visit Provider Nurse Practitioner Family
DX: Z12.31 Encounter for screening mammogram for malignant neoplasm of breast (principal); F17.210 Nicotine dependence, cigarettes, uncomplicated; Z12.2 Encounter for screening for malignant neoplasm of respiratory organs
CPT/HCPCS: 71271; 77063; 77067

== ENCOUNTER 2023-10-06 06:10 | Day surgery (SDC) | payer BC, SELFPAY ==
--- NOTE | 2023-10-05 18:05 | PDOC.DSDIS_ITS ---
Date of service: 10/06/23 Time of Service: 09:53 Discharge Plan Disposition Patient Disposition: Home Condition: Good Discharge Details Reason For Visit: colon scope Attending Provider: Natalie Roberto Primary Care Provider: Trinity Tsai Home Meds and New Rx's Prescriptions: Continued hydrocortisone acetate [Anusol-HC] 25 mg suppository 25 mg [place] BID PRN (Reason: hemorrhoids) Qty: 24 3RF cyclosporine [Restasis] 0.05 % dropperette 1 drp OU BID Qty: 1 11RF docusate sodium 100 mg capsule 100 mg PO DAILY PRN glycerin (adult) [Fleet Glycerin (Adult)] Suppository 1 supp [place] DAILY PRN Lactaid Fast Act 9,000 unit tablet,chewable 9,000 unit PO QAC PRN Rx Instructions: administer with meals and/or snacks Hemorrhoidal (witch dominic) 50 % pads, medicated 1 pad topical 4-6XD PRN ibuprofen 800 mg tablet 800 mg PO BID acetaminophen [Tylenol Extra Strength] 500 mg tablet 500 mg PO BID PRN calcium carbonate [Calcium 600] 600 mg calcium (1,500 mg) tablet 600 mg PO DAILY fluticasone propionate [Flonase Allergy Relief] 50 mcg/actuation spray,suspension 2 spray intranasal DAILY 30 Days Qty: 16 12RF Rx Instructions: administer into each nostril venlafaxine 37.5 mg capsule,extended release 24hr 37.5 mg PO DAILY Qty: 90 4RF cyanocobalamin (vitamin B-12) [Vitamin B-12] 1,000 MCG tablet 1,000 mcg PO DAILY Qty: 100 cholecalciferol (vitamin D3) 1,000 UNIT tablet 2,000 unit PO DAILY Qty: 200 Discontinued bisacodyl [Dulcolax (bisacodyl)] 5 mg tablet,delayed release (DR/EC) 5 mg PO ONCE Qty: 4 0RF Rx Instructions: Take per colonoscopy instructions provided by ordering providers office polyethylene glycol 3350 17 gram/dose powder 17 g PO ONCE Qty: 238 0RF Rx Instructions: Take per colonoscopy instructions provided by ordering providers office Discharge Instructions Additional Instructions: DSU Colonoscopy Post- Op Instructions Instructions for Everyone who is given Anesthesia: For your safety, please do the following for the next twenty-four (24) hours: *Do Not operate a motor vehicle (car, truck, motorcycle, etc.) *Do Not drink alcoholic beverages or use any recreational drugs for the first 24 hours or while taking pain medications. The medications in your body may have a reaction that can be dangerous. *Do Not make any important decisions or sign any important papers. Findings: External hemorrhoids Diverticula-make sure you are moving your bowels on a regular basis and not straining to go to the bathroom. If you find that you are straining or have issues with chronic constipation then it is recommended you start a fiber supplement daily such as Metamucil. -see handout Follow up: My office will send you a letter in 2 to 3 weeks time with the results of the biopsies and when we want you to repeat the colonoscopy. Most likely 5 years time. 1. No lifting over 20 pounds or strenuous activity for the first 24 hours after your procedure. After 24 hours there are no restrictions on your activity but you may feel fatigued for a few days. 2. After you arrive home you may have a light meal and return to your normal diet as you can tolerate it without feeling sick to your stomach. 3. You may have a bloated, gaseous feeling in your belly (abdomen) after a colonoscopy. Passing gas and belching will help. Walking or lying down on your left side with your knees flexed may relieve the discomfort. Call the office at [phone] (Office) or [phone] (Hospital) right away if you notice any of the following: a.Vomiting of blood or ?coffee ground stools?. b.Rectal bleeding 1Tbsp, blood clots or continuous bleeding. c.Severe belly (abdominal) pain. d.A hard distended belly (abdomen) and an inability to pass gas. 4. Please don?t expect to have a normal BM (bowel movement) for 2-3 days after your procedure. 5. If there are questions regarding the findings of your procedure, please contact your doctor 6. If you are unable to contact your doctor with a problem, contact the hospital at [phone]. 7. Continue all your regular medications unless directed otherwise. I understand the above instructions and have no questions. Signature of Patient or Adult Escort Name of Responsible Adult Escort Signature of Nurse Date/Time Stand Alone Forms: Anesthesia Discharge Marcellus Sanchez (DSU) Activity:: see above Diet:: As Tolerated Discharge Orders Discharge Orders: Discharge Order (Routine); Ordered 10/06/23 Ordered By: Natalie Roberto DS: Diagnosis Discharge Diagnosis (1) Anxiety: Status: Acute (2) Hyperlipemia: Status: Acute (3) Conductive hearing loss in left ear: Status: Acute (4) Irritable bowel syndrome with diarrhea: Status: Acute (5) Smoker: Status: Acute (6) Crohn's disease: Asessment and Plan: The patient is seen and examined after their colonoscopy.? The patient has been able to pass gas.? They are not having abdominal pain.? They have been able to tolerate liquids and a snack.? They do not have any nausea or vomiting.? They are not having any chest pain or shortness of breath.??? They are not having any rectal bleeding. Their vital signs have been stable-see nursing notes. We discussed findings during their colonoscopy, and any biopsies that were done/polyps that were removed. The patient will be sent a letter with any biopsy results, and when to repeat the colonoscopy.-see discharge instructions. Patient was given explicit instructions to follow-up regarding colonoscopy-refer to discharge instructions.? We reviewed resumption of medications. Patient verbalized understanding and discharged in stable and satisfactory condition- See nursing notes. (7) Diverticula of colon: Status: Acute
--- NOTE | 2023-10-05 18:17 | W.COLOREPORT ---
Date of service: 10/06/23 Time of Service: 09:43 Colonoscopy Report Date of procedure: 10/06/23 Pre-op diagnosis general: hx of Crohns Post-op diagnosis procedure note: other (External hemorrhoids/diverticulosis) Surgeon: Natalie Roberto Anesthesia Type: General:No Airway Estimated blood loss (mL): 2 Pathology: other Complications: None Disposition: same day Prep: Miralax/Dulcolax Retraction Time: 16 Procedure Description: After informed consent was obtained the patient was taken to the procedure room and placed in a left decubitous position. Monitors were applied and a time out was done. The patients name, date of , procedure, allergies to medications and metal in their body was reviewed. The patient was then sedated. Once sedated and comfortable a rectal exam was done. External exam shows external hemorrhoids that are not thrombosed or inflamed.. Internal exam revealed a normal sphincter tone and no palpable masses. The scope was then introduced and retrofelexed. No internal hemorrhoids were identified. The scope was then advanced to the cecum without difficulty. The TI and appendiceal orifice were identified. The scope was then slowly retracted over 16 minutes back into the rectum. She has very minute diverticuli that are confined to the sigmoid colon. There is no signs of active bleeding or infection. No polyps are visualized today. There is no signs of active Crohn's disease or stigmata of chronic disease. Biopsies are taken of the terminal ileum/cecum. Biopsies are taken starting 90/80/70/60/50/40/30/20cm and the rectum. All specimens are retrieved and no bleeding is noted. The scope was removed and the patient was woken up and taken back to Same day surgery in stable condition. The patient tolerated the procedure well and there were no immediate complications. Follow up: The patient should follow up in 5-10 years, path pending, unless they develop changes in bowel habits or other new gastrointestinal complaints. [place] Bowel Prep [place] Bowel Prep Right Colon: 3 Left Colon: 3 Transverse Colon: 3 Total Score: 9
[2023-10-06 06:20] VITALS: BP 118/75; PULSE 76; RESP 16; TEMP 36.4; O2SAT 98
[2023-10-06] MEDS: Lactated Ringers 1,000 ML 80 ML IV (06:41)
--- NOTE | 2023-10-06 07:05 | W.ANESPRE ---
General Info Date of Service Date Performed: 10/06/23 Height: 5 ft 4 in Weight: 59.9 kg Body Mass Index (BMI): 22.6 Surgical Procedure: Operation Date: 10/06/23 07:35 Proposed Procedure Side Surgeon p Sierra Roberto DO Pre-Op Diagnosis Post-Op Diagnosis colon scope Meds Allergies and Home Medications Allergies Allergy/AdvReac Type Severity Reaction Status Date / Time nickel Allergy Unknown Skin Rash Verified 10/06/23 06:19 Home Medication Medication Instructions Recorded cyanocobalamin (vitamin B-12) 1,000 mcg PO DAILY #100 tab-caps 01/28/14 1,000 mcg tablet (Vitamin B-12) cholecalciferol (vitamin D3) 25 2,000 unit PO DAILY #200 tab-caps 07/15/14 mcg (1,000 unit) tablet docusate sodium 100 mg capsule 100 mg PO DAILY PRN 07/02/21 glycerin (adult) (Fleet Glycerin 1 supp [place] DAILY PRN 07/02/21 (Adult) rectal suppository) lactase 9,000 unit chewable tablet 9,000 unit PO QAC PRN 07/02/21 (Lactaid Fast Act) witch dominic 50 % topical pads 1 pad topical 4-6XD PRN 07/02/21 (Hemorrhoidal (witch dominic)) acetaminophen 500 mg tablet 500 mg PO BID PRN 03/01/22 (Tylenol Extra Strength) ibuprofen 800 mg tablet 800 mg PO BID 03/01/22 hydrocortisone acetate 25 mg 25 mg [place] BID PRN hemorrhoids #24 ea 07/05/22 rectal suppository (Anusol-HC) calcium carbonate (Calcium 600) 600 mg PO DAILY 12/22/22 fluticasone propionate 50 2 spray intranasal DAILY 30 days 03/29/23 mcg/actuation nasal #16 grams spray,suspension (Flonase Allergy Relief) cyclosporine 0.05 % eye drops in a 1 drp OU BID ##1 07/10/23 dropperette (Restasis) venlafaxine 37.5 mg 37.5 mg PO DAILY #90 caps 09/19/23 capsule,extended release 24 hr Current Visit Medications: Current Medications Generic Name Dose Route Start Last Admin Trade Name Freq PRN Reason Stop Dose Admin Hyoscyamine Sulfate 0.125 mg 10/06/23 01:58 Hyoscyamine 0.125 Mg Sl/Oral/Chew SL 11/05/23 01:57 DIRECTED PRN Ringer's Solution 1,000 mls @ 80 mls/hr 10/06/23 06:00 10/06/23 06:41 IV 10/17/23 23:59 80 mls/hr INFUSION BRI Administration IV Miscellaneous Supplies 1 each 10/06/23 06:00 Iv Access IV 10/17/23 23:59 DIRECTED BRI Ondansetron HCl 4 mg 10/06/23 01:58 Ondansetron 4 Mg/2 Ml Vial IVP 11/05/23 01:57 Q4H PRN PRN Nausea / Vomiting Sodium Chloride 0 ml 10/06/23 06:00 Normal Saline Flush 10 Ml Syr IV 10/17/23 23:59 PRN PRN Sodium Chloride 0 ml 10/06/23 06:00 Normal Saline 10 Ml Vial IJ 10/17/23 23:59 DIRECTED PRN Sterile Water 0 ml 10/06/23 06:00 Water,Injection,Sterile 10 Ml Vial IJ 10/17/23 23:59 DIRECTED PRN PFSH Active Problems Active Problems: Problem Status Onset Code Dense breast tissue on mammogram R92.30 Conductive hearing loss in left ear H90.12 Nasal congestion R09.81 Hyperlipemia E78.5 COVID-19 ~05/25/22 U07.1 Spinal stenosis M48.00 Urinary frequency R35.0 Lumbar pain M54.5 Nocturnal leg cramps G47.62 Smoker F17.200 Sciatica of left side 01/09/14 M54.32 Restless leg syndrome 07/22/14 G25.81 Irritable bowel syndrome with diarrhea K58.0 Anxiety 03/28/13 F41.9 Medical History Medical History Depression Crohn's disease Arthritis Left leg pain Radicular pain Toe fracture, right Chronic diarrhea Small bowel obstruction due to postoperative adhesions Surgical History Surgical History History of salpingo-oophorectomy H/O ovarian cystectomy H/O resection of small bowel Hx of cholecystectomy H/O dilation and curettage Abdominal hysterectomy post hemorrhage; right ovary remains Colonoscopy - IV Sedation 2012 Cholecystectomy BACK (05/21/15) Tobacco Smoking/Tobacco Use Status: Current every day Tobacco Type: cigarettes Passive smoking exposure: Yes Second hand exposure: Yes Alcohol Alcohol Intake: current Alcohol intake frequency: holidays/special occasions only Alcohol type: wine Substance Use Substance use: Never Substance use type: does not use Vital Signs and Lab Results Vital Signs Most Recent Vital Signs in EMR: Most Recent Vital Signs Temp Pulse Resp BP Pulse Ox 36.4 C L 76 16 118/75 98 10/06/23 06:20 10/06/23 06:20 10/06/23 06:20 10/06/23 06:20 10/06/23 06:20 Lab Results Blood Type / Crossmatch: No Data to Display Complete Blood Count: No Data to Display Complete Metabolic Panel: No Data to Display Liver Function Panel: No Data to Display Coagulation Panel: No Data to Display Cardiac Panel: No Data to Display Arterial Blood Gas: No Data to Display Venous Blood Gas: No Data to Display Pancreas Panel: No Data to Display Thyroid Panel: No Data to Display Infectious Disease: No Data to Display Blood Cultures: No Data to Display Toxicology Panel: No Data to Display Anesthesia Assessment and Plan Anesthesia History Personal History: No History of Anesthesia Complications Family History: No Family History of Anesthesia Complications Exercise Tolerance Exercise Tolerance: Metabolic Equivalents>4 Pertinent Negatives Pertinent Negatives: No Symptoms of GERD, No Major Cardiovascular Symptoms or Complaints and No Major Pulmonary Symptoms or Complaints Cardiac & Pulmonary Exam Cardiac Exam: Normal S1/S2 Heart Sounds Pulmonary Exam: Clear Bilateral Breath Sounds Implantable Cardiac Device Does patient have a Pacemaker or an ICD?: No Airway Exam Known Difficult Airway: No Mallampati Class: 1 Mouth Opening: Normal (> 3cm) Thyromental Distance: Greater than 3 cm Neck Range of Motion: Full ROM Neck Circumference: Normal Teeth Condition: Normal Dentition ASA Classification ASA Score: ASA 3 Emergency Case?: No NPO Status NPO Status: NPO Clears >2 hours, Solids >8 hours Anesthesia Plan Resuscitation Status: Full Code Anesthesia Technique: General Anesthesia Airway Planned: Natural Airway Monitors Used: Standard Monitors
[2023-10-06 07:06] VITALS: BMI 22.6
--- NOTE | 2023-10-06 07:48 | BOWEL_PTH ---
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
[2023-10-06 08:05] VITALS: BP 111/65; PULSE 58; RESP 16; TEMP 36.6; O2SAT 100
[2023-10-06 08:35] VITALS: BP 125/56; PULSE 55; RESP 16; TEMP 36.6; O2SAT 100
--- NOTE | 2023-10-06 08:39 | W.ANESPOSTOP ---
Postoperative Evaluation Date, Time and Location Date Performed: 10/06/23 Time Performed: 08:25 Patient Location: Day Surgery Unit Vital Signs Most Recent Imported Vital Signs: Most Recent Vital Signs Temp Pulse Resp BP Pulse Ox 36.6 C 55 L 16 125/56 L 100 10/06/23 08:35 10/06/23 08:35 10/06/23 08:35 10/06/23 08:35 10/06/23 08:35 Pain Score Most Recent Pain Score: Most Recent Pain Score Pain Level 0 10/06/23 08:35 Assessment Mental Status: Awake (Alert & Oriented to Patient Baseline) Airway and Respiratory Function: Patent airway with normal (patient baseline) respiratory exam Cardiovascular Function: Hemodynamically Stable Hydration Status: Adequately Hydrated Nausea & Vomiting: No Nausea or Vomiting Pain: Pt. Denies Any Pain Peripheral Nerve Block: Patient did not receive a nerve block
== END 2023-10-06 10:03 | disposition home or self-care (01) ==
LOC: SUR 06:11
PROVIDERS: PCP Nurse Practitioner Family; Visit Provider Surgery
PROC: 0DJD8ZZ Inspection of Lower Intestinal Tract, Via Natural or Artificial Opening Endoscopic (ICD-10-PCS; CPT 45378; principal; 2023-10-06 07:30)
DX: Z12.11 Encounter for screening for malignant neoplasm of colon (principal); K64.8 Other hemorrhoids; K57.30 Diverticulosis of large intestine without perforation or abscess without bleeding
CPT/HCPCS: 45380; 88305; J2001; J2704

== ENCOUNTER 2024-11-19 02:16 | Outpatient (CLI) | payer BC, SELFPAY ==
[2024-11-19 08:20] LABS: HCT 37.6 % (36.0-46.0); HGB 12.4 g/dL (11.2-15.7); MCH 28.5 pg (27.0-33.0); MCV 86 fL (80-95); MPV 9.5 fL (8.0-11.0); Platelet Count 185 10^3/uL (130-400); RBC 4.35 10^6/uL (3.93-5.22); RDW 12.3 % (11.7-14.6); RDW-SD 38.5 fL; WBC 5.06 10^3/uL (4.4-10.8)
[2024-11-19 09:25] LABS: Iron 155 ug/dL (50-170); Total Iron Binding Capacity 320 ug/dL (250-450); Transferrin Sat 48 % (15-50)
[2024-11-19 17:54] LABS: ALT 23 U/L (14-59); AST 22 U/L (15-37); Albumin 3.7 g/dL (3.4-5.0); Alkaline Phosphatase 110 U/L (46-116); Anion Gap 7.1 mmol/L (3-11); BUN 21 mg/dL (7-18); Bilirubin, Total 0.4 mg/dL (0.2-1.0); CO2 27.9 mmol/L (21.0-32.0); CREATININE 0.5 mg/dL (0.55-1.02); Calcium 8.9 mg/dL (8.5-10.1); Chloride 105 mmol/L (98-107); Estimated GFR 107.31 (mL/min/1.73m2); Ferritin 45 ng/mL (8-252); Glucose 93 mg/dL (74-106); Potassium 3.8 mmol/L (3.5-5.1); Sodium 140 mmol/L (136-145); TSH (W/Ref FT4) 1.47 uIU/mL (0.36-3.74); Total Protein 6.9 g/dL (6.4-8.2); Vitamin B12 725 pg/mL (193-986)
== END 2024-11-19 02:17 | disposition home or self-care (01) ==
LOC: LBO 02:16
PROVIDERS: PCP Nurse Practitioner Family; Visit Provider Nurse Practitioner Family
DX: Z00.00 Encounter for general adult medical examination without abnormal findings (principal); R53.83 Other fatigue; F17.200 Nicotine dependence, unspecified, uncomplicated; E78.5 Hyperlipidemia, unspecified; F41.9 Anxiety disorder, unspecified; F32.A Depression, unspecified
CPT/HCPCS: 36415; 80053; 85027; 82607; 82728; 83540; 83550; 84443

== ENCOUNTER 2025-03-27 04:28 | Outpatient (CLI) | payer BC, SELFPAY ==
--- NOTE | 2025-03-27 07:15 | DI.DEXA_ITS ---
Exam(s) XR DEXA BONE DENSITY W/WO MARTINA EXAM: XR DEXA BONE DENSITY W/WO MARTINA CLINICAL HISTORY: screening for osteoporosis,postmenopausal state,family h/o osteoporosis TECHNIQUE: COMPARISON: CR XR DEXA BONE DENSITY W/WO MARTINA from 08/18/2022 FINDINGS: Lateral Spine Image: Unremarkable. No compression deformities identified. Left hip: Total T-Score: -2.4. This compares to -2.6 on the prior examination. Total Z-Score: -1.4 T- and Z-scores: Findings are consistent with osteopenia. Lumbar Spine: Total T-Score: -1.8. This compares to -1.7 on the prior examination. Total Z-Score: -0.3 T- and Z-scores: Overall, the findings are consistent with osteopenia. There is osteoporosis in the L1 vertebral body with a T-score of -2.5. There is osteoporosis seen in the mid left forearm with a T-score of -2.5. This compares to -2.3 on the prior examination. IMPRESSION: There is evidence of osteoporosis in the mid left forearm and the L1 vertebral body.
== END 2025-03-27 04:48 ==
LOC: DI 04:28
PROVIDERS: PCP Nurse Practitioner Family; Visit Provider Nurse Practitioner Family
DX: Z78.0 Asymptomatic menopausal state (principal); N95.1 Menopausal and female climacteric states; Z82.62 Family history of osteoporosis
CPT/HCPCS: 77080